=== PATIENT | male | born 1945 | race Hispanic/Latino ===

== ENCOUNTER 2017-06-12 11:39 | Emergency (ER) | payer BC, MEDICARE ==
[2017-06-12 11:57] LABS: BASOPHILS % (AUTO) 0.8 % (0.0-5.0); EOSINOPHILS % (AUTO) 2.2 % (0.0-8.0); HEMATOCRIT 41.9 % (42-54); LYMPHOCYTES % (AUTO) 15.7 % (21.0-51.0); MEAN CORPUSCULAR HEMOGLOBIN 30.7 pg (27.0-33.0); MEAN CORPUSCULAR HGB CONC 32.6 g/dL (32.0-36.0); MEAN CORPUSCULAR VOLUME 94.1 fL (79-99); MONOCYTES % (AUTO) 5.2 % (3.0-13.0); NEUTROPHILS % (AUTO) 76.1 % (40.0-77.0); PLATELET COUNT (AUTO) 249 K/uL (130-400); RED BLOOD CELL COUNT(AUTO) 4.45 MIL/uL (4.50-6.20); RED CELL DISTRIBUTION WIDTH 13.9 % (11.0-15.5); WHITE BLOOD COUNT (AUTO) 12.4 K/uL (4.8-10.8)
[2017-06-12 12:19] LABS: APPEARANCE,URINE Clear (CLEAR); BILIRUBIN,URINE Negative (NEGATIVE); COLOR,URINE Yellow (YELLOW); GLUCOSE, URINE (UA) 500 mg/dL (NEGATIVE); KETONES,URINE Trace mg/dL (NEGATIVE); LEUKOCYTE ESTERASE ,URINE Negative (NEGATIVE); NITRATE,URINE Negative (NEGATIVE); OCCULT BLOOD,URINE Small (NEGATIVE); PH,URINE 5.5 (5.0-8.0); PROTEIN,URINE >=1000 (NEGATIVE)
[2017-06-12 12:27] LABS: BACTERIA,URINE Rare /HPF (None Seen); SQUAMOUS EPITHELIAL CELL,UR Rare /LPF (0-2); WBC,URINE 0-1 /HPF (0-1)
[2017-06-12 12:48] LABS: POTASSIUM 4.9 mmol/L (3.5-5.1)
[2017-06-12 12:53] LABS: ALBUMIN 3.1 g/dL (3.5-5.0); BILIRUBIN,TOTAL 0.4 mg/dL (0.2-1.0); TOTAL PROTEIN, SERUM 7.4 g/dL (6.0-8.3)
[2017-06-12] MEDS ORDERED: ASPIRIN 325 MG TABLET ONE (17:43)
[2017-06-12] MEDS ORDERED: LABETALOL HCL 5 MG/ML 20ML VIAL IV ONE ×2 (18:06→18:49)
[2017-06-12] MEDS ORDERED: INSULIN HUMULIN R 100 UNIT/ML 3ML ONE (18:50)
== END 2017-06-12 21:10 | disposition short-term general hospital (02) ==
LOC: EDH 11:39
DX: I63.8 Other cerebral infarction (principal); I10 Essential (primary) hypertension; E11.9 Type 2 diabetes mellitus without complications; I48.91 Unspecified atrial fibrillation; E78.5 Hyperlipidemia, unspecified; Z87.891 Personal history of nicotine dependence
CPT/HCPCS: 36415; 70450; 73562; 80053; 81001; 82948; 84484; 85025; 93005; 96365; 96375; 99285; J1815; J3490 ×2

== ENCOUNTER → 2017-12-30 | Outpatient (CLI) | payer BC, MEDICARE | END | disposition home or self-care (01) | LOC: RAH 10:18 | PROVIDERS: ATTEND Family Medicine | DX: M71.22 Synovial cyst of popliteal space [Baker], left knee (principal); M71.21 Synovial cyst of popliteal space [Baker], right knee; R22.43 Localized swelling, mass and lump, lower limb, bilateral; E78.5 Hyperlipidemia, unspecified; I13.0 Hypertensive heart and chronic kidney disease with heart failure and stage 1 through stage 4 chronic kidney disease, or unspecified chronic kidney disease; I50.33 Acute on chronic diastolic (congestive) heart failure; E11.22 Type 2 diabetes mellitus with diabetic chronic kidney disease; N18.3 Chronic kidney disease, stage 3 (moderate); I48.0 Paroxysmal atrial fibrillation | CPT/HCPCS: 93970 ==

== ENCOUNTER 2020-03-14 12:47 | Observation (INO) | payer OTHER ==
[~2020-03-14] VITALS: Ht 165.1 cm; Wt 74.2 kg
[2020-03-14 13:52] LABS: BASOPHILS % (AUTO) 0.6 % (0.0-5.0); EOSINOPHILS % (AUTO) 1.2 % (0.0-8.0); LYMPHOCYTES % (AUTO) 12.8 % (21.0-51.0); MEAN CORPUSCULAR HEMOGLOBIN 26.3 pg (27.0-33.0); MEAN CORPUSCULAR HGB CONC 30.9 g/dL (32.0-36.0); MEAN CORPUSCULAR VOLUME 85.4 fL (79-99); NEUTROPHILS % (AUTO) 76.9 % (40.0-77.0); PLATELET COUNT (AUTO) 236 K/uL (130-400); RED BLOOD CELL COUNT(AUTO) 2.05 MIL/uL (4.50-6.20); RED CELL DISTRIBUTION WIDTH 15.2 % (11.0-15.5); WHITE BLOOD COUNT (AUTO) 8.4 K/uL (4.8-10.8)
[2020-03-14 14:05] LABS: ALBUMIN 3.4 g/dL (3.5-5.0); BILIRUBIN,TOTAL 0.4 mg/dL (0.2-1.0); CREATININE 2.8 mg/dL (0.5-1.5); POTASSIUM 4.9 mmol/L (3.5-5.1); TOTAL PROTEIN, SERUM 7.1 g/dL (6.0-8.3)
[2020-03-14 14:12] LABS: HEMATOCRIT 17.5 % (42-54)
[2020-03-14] MEDS ORDERED: PANTOPRAZOLE 40 MG/VIAL ONE (14:43)
[2020-03-14] MEDS ORDERED: HYDRALAZINE HCL 20 MG/ML VIAL IV PRN ×2 (14:45→17:30)
[2020-03-14] MEDS ORDERED: SODIUM CHLORIDE 0.9% 1000ML 1,000 ML IV ONE (15:08)
[2020-03-14] MEDS ORDERED: MECLIZINE HCL 25 MG TABLET ONE (15:10)
[2020-03-14 15:11] LABS: INR 1.15 (0.85-1.15); PROTHROMBIN TIME 12.4 SEC (9.6-11.6)
[2020-03-14 15:31] LABS: HEMATOCRIT 17.7 % (42-54)
[2020-03-14] MEDS ORDERED: ONDANSETRON HCL 4 MG/2 ML VIAL IVP PRN (17:30)
[2020-03-14] MEDS ORDERED: DEXTROSE 50%-WATER 50 ML DISP.SYRIN IV PRN (17:30)
[2020-03-14] MEDS ORDERED: ACETAMINOPHEN 325 MG TAB PO PRN (17:30)
[2020-03-14] MEDS ORDERED: GLUCAGON 1MG KIT 1 MG ML IM PRN (17:30)
[2020-03-14] MEDS ORDERED: RENAL DOSE IV PRN (17:30)
[2020-03-14] MEDS ORDERED: ACETAMINOPHEN 650 MG SUPPOSITORY RC PRN (17:30)
[2020-03-14] MEDS ORDERED: TEMAZEPAM 15 MG CAPSULE PO PRN (17:30)
[2020-03-14 20:05] LABS: HEMATOCRIT 16.5 % (42-54)
[2020-03-14 20:40] VITALS: BP 147/71
[2020-03-14] MEDS: INSULIN HUMULIN R 100 UNIT/ML 3ML SQ SCH (21:00)
[2020-03-14] MEDS: SODIUM CHLORIDE 0.9% 1000ML 1,000 ML IV SCH (23:25)
[2020-03-14] MEDS ORDERED: SODIUM CHLORIDE 0.9% 250 ML IV ONE (23:33)
[2020-03-14 23:54] VITALS: BP 129/62
[2020-03-15] VITALS (20 sets, daily range): BP systolic 118–172; BP diastolic 42–88
[2020-03-15] MEDS: PANTOPRAZOLE SODIUM 80 MG in SODIUM CHLORIDE 0.9% 100 ML IV SCH (00:14)
[2020-03-15] MEDS: SODIUM CHLORIDE 0.9% 1000ML 1,000 ML IV SCH ×3 (00:45→20:45)
[2020-03-15 02:48] LABS: HEMATOCRIT 21.6 % (42-54); MEAN CORPUSCULAR HEMOGLOBIN 27.8 pg (27.0-33.0); MEAN CORPUSCULAR HGB CONC 32.4 g/dL (32.0-36.0); MEAN CORPUSCULAR VOLUME 85.7 fL (79-99); RED BLOOD CELL COUNT(AUTO) 2.52 MIL/uL (4.50-6.20); RED CELL DISTRIBUTION WIDTH 14.6 % (11.0-15.5); WHITE BLOOD COUNT (AUTO) 7.6 K/uL (4.8-10.8)
[2020-03-15 03:00] LABS: CREATININE 2.6 mg/dL (0.5-1.5); POTASSIUM 4.5 mmol/L (3.5-5.1)
--- NOTE | 2020-03-15 06:21 | NUR ---
PATIENT UPDATE ADMITTED A 74 YR OLD MALE FROM ER WITH THE CHIEF COMPLAINT OF FEELING SOME DIZZINESS WITH NAUSEA AND GEN BODY WEAKNESS SINCE 4 DAYS AGO WHICH PROMPTED THE DAUGHTER TO BRING PT HERE FOR CONSULTATION. VERY ANEMIC WITH AN H/H OF 5.4/ 17.5 AND WITH ONGOING BLOOD TRANSFUSION FOR THE 1ST UNIT OF PRBC, PENDING 1 MORE UNIT TO TRANSFUSE. WITH ONGOING PROTONIX DRIP INFUSING AT 8 MG /HR.PT PLACED ON 2L OF NASAL CANNULA, HEAD OF THE BED UP , ALERT AND ORIENTED X 3, AWARE OF THE PLAN FOR EGD WITH MAC THIS AM. PT STATED THAT HE'S BEEN PASSING TARRY STOOLS. NO NAUSEA AT THIS TIME. KEPT NPO POST MN, PRESENTLY RUNNING THE 3RD UNIT OF PRBC. H/H POST TRANSFUSION OF 2 UNITS OF PRBC AFTER 0300 WAS 7.0/21.6. WENT AHEAD AND STARTED THE TRANSFUSION OF THE 3RD UNIT OF PRBC. PT TOLERATING THE BLOOD TRANSFUSION WELL, VITAL SIGNS STABLE. ORDERED NS AT 100 CC/HR HELD WHILE PT IS RECEIVING ACTIVE BLOOD TRANSFUSION. NO SIGNS OF EXTERNAL BLEEDING NOTED. RUNNING AFIB IN THE MONITOR AT A CONTROLLED RATE MOSTLY BET 50'S TO 60'S. NO CHEST PAIN, NO SHORTNESS OF BREATH. SOME SWELLING IN THE MER LOWER EXTREMITIES, DEPENDENT EDEMA, NON PITTING, KNOWN CHF. VOIDING TO ADEQUATE AMOUNTS OF URINE THROUGHOUT THE WHOLE NIGHT. NO COMPLAINTS VOICED OUT, SLEPT FAIRLY MOST OF THE NIGHT, MER SCD'S TO BOTH LEGS FOR VTE PROTOCOL.
[2020-03-15] MEDS: INSULIN HUMULIN R 100 UNIT/ML 3ML SQ SCH ×4 (07:13→21:00)
[2020-03-15 09:00] LABS: HEMATOCRIT 25.2 % (42-54)
[2020-03-15] MEDS ORDERED: COMPOUND IV MISC 1 EACH IVSOLN MISC PRN (12:45)
--- NOTE | 2020-03-15 16:39 | NUR ---
INITIAL: Met with pt this afternoon to discuss dcp. Pt mentions that he lives w his dtr [place]. Prior to admission he was independent w ambulation and ADLS. He has a cane if needed. Pt mentions that his dtr will be avail to assist him at home if needed. DCP is for home CM to continue to follow and wait for MD recommendations. Addendum: 03/15/20 at 1641 by TYRESE ONEAL CM Amended: Links added.
[2020-03-15] MEDS ORDERED: PANTOPRAZOLE 40 MG/VIAL ONE (23:58)
[2020-03-15] MEDS ORDERED: SODIUM CHLORIDE 0.9% 100 ML IV ONE (23:59)
[2020-03-16] VITALS: BP 153/91
[2020-03-16 04:00] VITALS: BP 174/82
[2020-03-16 04:55] VITALS: BP 161/85
[2020-03-16] MEDS ORDERED: CLONIDINE HCL 0.1 MG TABLET PO PRN (05:00)
[2020-03-16] MEDS: SODIUM CHLORIDE 0.9% 1000ML 1,000 ML IV SCH ×2 (05:17→09:53)
[2020-03-16] MEDS: INSULIN HUMULIN R 100 UNIT/ML 3ML SQ SCH ×2 (05:58→11:30)
[2020-03-16 06:15] LABS: HEMATOCRIT 24.3 % (42-54); MEAN CORPUSCULAR HEMOGLOBIN 27.4 pg (27.0-33.0); MEAN CORPUSCULAR HGB CONC 31.7 g/dL (32.0-36.0); MEAN CORPUSCULAR VOLUME 86.5 fL (79-99); RED BLOOD CELL COUNT(AUTO) 2.81 MIL/uL (4.50-6.20); RED CELL DISTRIBUTION WIDTH 14.8 % (11.0-15.5); WHITE BLOOD COUNT (AUTO) 7.1 K/uL (4.8-10.8)
[2020-03-16 06:23] LABS: CREATININE 2.2 mg/dL (0.5-1.5); POTASSIUM 4.1 mmol/L (3.5-5.1)
[2020-03-16 08:00] VITALS: BP 118/63
[2020-03-16 09:00] VITALS: BP 171/94
[2020-03-16] MEDS: PANTOPRAZOLE SODIUM 80 MG in SODIUM CHLORIDE 0.9% 100 ML IV SCH (09:00)
[2020-03-16] MEDS ORDERED: METO-391 PO (09:31)
[2020-03-16] MEDS ORDERED: FURO40TA5 PO (09:31)
[2020-03-16] MEDS ORDERED: HYDR-3420 PO (09:31)
[2020-03-16] MEDS ORDERED: COLC0.6C3 PO (09:31)
[2020-03-16] MEDS ORDERED: NIFE-39 PO (09:31)
[2020-03-16] MEDS ORDERED: APIX5TAB PO (09:31)
[2020-03-16] MEDS ORDERED: DOXA2TAB2 PO (09:31)
[2020-03-16] MEDS ORDERED: ATOR40TA69 PO (09:31)
[2020-03-16] MEDS ORDERED: FAMO20TA8 PO (09:31)
[2020-03-16] MEDS ORDERED: CARAL PO (11:27)
[2020-03-16] MEDS ORDERED: PANT40TA PO (11:27)
--- NOTE | 2020-03-16 15:15 | NUR ---
DISCHARGE DISCHARGE INSTRUCTIONS GIVEN TO PATIENT AND HIS DAUGHTER, BOTH VERBALIZED UNDERSTANDING. PRESCRIPTIONS SENT TO HEB. IV'S DISCONTINUED.
[2020-03-16] MEDS ORDERED: PANTOPRAZOLE SODIUM 40 MG TABLET.DR PO SCH (21:00)
== END 2020-03-16 13:10 | disposition home or self-care (01) ==
LOC: EDH 12:47 → EDHIP 14:37 → 4CH 19:53
PROVIDERS: ADMIT Internal Medicine; ATTEND Internal Medicine
DX: D64.9 Anemia, unspecified (principal); K92.1 Melena; K29.70 Gastritis, unspecified, without bleeding; M10.9 Gout, unspecified; I12.9 Hypertensive chronic kidney disease with stage 1 through stage 4 chronic kidney disease, or unspecified chronic kidney disease; E11.22 Type 2 diabetes mellitus with diabetic chronic kidney disease; N18.9 Chronic kidney disease, unspecified; E78.5 Hyperlipidemia, unspecified; N17.9 Acute kidney failure, unspecified; I48.91 Unspecified atrial fibrillation; Z79.01 Long term (current) use of anticoagulants; Z79.899 Other long term (current) drug therapy
CPT/HCPCS: 36415 ×3; 36430 ×2; 43235; 70450; 71045 ×2; 80048 ×2; 80053; 82270; 82948 ×6; 84484 ×2; 85014 ×4; 85018 ×4; 85025; 85027 ×2; 85378; 85610; 86850; 86900; 86901; 86923 ×2; 93005; 96360; 96361 ×2; 99285; A4222; A4223; A4606; A4620; A4657; C9113 ×4; G0378 ×11; J7030 ×2; J7050; P9016 ×3

== ENCOUNTER 2020-03-31 11:33 | Emergency (ER) | payer OTHER ==
[~2020-03-31 11:33] MED LIST: APIX5TAB PO; ATOR40TA69 PO; CARAL PO; DOXA2TAB2 PO; FURO40TA5 PO; HYDR-3420 PO; METO-391 PO; NIFE-39 PO; PANT40TA PO
[2020-03-31 12:06] LABS: BASOPHILS % (AUTO) 0.4 % (0.0-5.0); HEMATOCRIT 23.2 % (42-54); LYMPHOCYTES % (AUTO) 9.6 % (21.0-51.0); MEAN CORPUSCULAR HEMOGLOBIN 26.9 pg (27.0-33.0); MEAN CORPUSCULAR HGB CONC 31.9 g/dL (32.0-36.0); MEAN CORPUSCULAR VOLUME 84.4 fL (79-99); MONOCYTES % (AUTO) 3.9 % (3.0-13.0); NEUTROPHILS % (AUTO) 84.8 % (40.0-77.0); PLATELET COUNT (AUTO) 324 K/uL (130-400); RED BLOOD CELL COUNT(AUTO) 2.75 MIL/uL (4.50-6.20); RED CELL DISTRIBUTION WIDTH 15.8 % (11.0-15.5); WHITE BLOOD COUNT (AUTO) 11.4 K/uL (4.8-10.8)
[2020-03-31 12:29] LABS: ALBUMIN 3.4 g/dL (3.5-5.0); BILIRUBIN,TOTAL 0.5 mg/dL (0.2-1.0); CREATININE 3.1 mg/dL (0.5-1.5); POTASSIUM 4.3 mmol/L (3.5-5.1); TOTAL PROTEIN, SERUM 7.6 g/dL (6.0-8.3)
[2020-03-31 12:41] LABS: INR 1.18 (0.85-1.15); PARTIAL THROMBOPLASTIN TIME 31.5 SEC (26.3-35.5); PROTHROMBIN TIME 12.7 SEC (9.6-11.6)
[2020-03-31 14:13] LABS: APPEARANCE,URINE Clear (CLEAR); BILIRUBIN,URINE Negative (NEGATIVE); COLOR,URINE Yellow (YELLOW); GLUCOSE, URINE (UA) Negative (NEGATIVE); KETONES,URINE Negative (NEGATIVE); LEUKOCYTE ESTERASE ,URINE Negative (NEGATIVE); NITRATE,URINE Negative (NEGATIVE); OCCULT BLOOD,URINE Negative (NEGATIVE); PROTEIN,URINE POS 2+ mg/dL (NEGATIVE); UROBILINOGEN,URINE 0.2 mg/dL (0.2-1.0)
[2020-03-31 14:25] LABS: BACTERIA,URINE Rare /HPF (None Seen); RBC,URINE 0-1 /HPF (0-1); SQUAMOUS EPITHELIAL CELL,UR Rare /HPF (0-2); WBC,URINE 0-1 /HPF (0-1)
== END 2020-03-31 15:39 | disposition home or self-care (01) ==
LOC: EDH 11:33
DX: K62.5 Hemorrhage of anus and rectum (principal); E11.9 Type 2 diabetes mellitus without complications; I10 Essential (primary) hypertension; E78.5 Hyperlipidemia, unspecified; I50.9 Heart failure, unspecified; M10.9 Gout, unspecified; I48.91 Unspecified atrial fibrillation
CPT/HCPCS: 36415; 80053; 81001; 85025; 85610; 85730; 86850; 86900; 86901; 87040; 93005

== ENCOUNTER 2020-04-01 16:08 | Inpatient (IN) | payer OTHER ==
[~2020-04-01] VITALS: Ht 165.1 cm; Wt 88.9 kg
[2020-04-01 16:37] LABS: BASOPHILS % (AUTO) 0.6 % (0.0-5.0); MEAN CORPUSCULAR HEMOGLOBIN 26.7 pg (27.0-33.0); MEAN CORPUSCULAR HGB CONC 31.5 g/dL (32.0-36.0); MEAN CORPUSCULAR VOLUME 84.6 fL (79-99); MONOCYTES % (AUTO) 5.8 % (3.0-13.0); NEUTROPHILS % (AUTO) 77.1 % (40.0-77.0); PLATELET COUNT (AUTO) 283 K/uL (130-400); RED CELL DISTRIBUTION WIDTH 15.9 % (11.0-15.5); WHITE BLOOD COUNT (AUTO) 8.6 K/uL (4.8-10.8)
[2020-04-01 16:45] LABS: HEMATOCRIT 20.3 % (42-54)
[2020-04-01 16:54] LABS: CREATININE 3.1 mg/dL (0.5-1.5); POTASSIUM 4.2 mmol/L (3.5-5.1)
[2020-04-01 16:58] LABS: INR 1.14 (0.85-1.15); PARTIAL THROMBOPLASTIN TIME 30.6 SEC (26.3-35.5); PROTHROMBIN TIME 12.3 SEC (9.6-11.6)
[2020-04-01 16:59] LABS: BILIRUBIN,TOTAL 0.3 mg/dL (0.2-1.0); TOTAL PROTEIN, SERUM 7.1 g/dL (6.0-8.3)
[2020-04-01] MEDS ORDERED: MAG HYDROX/AL HYDROX/SIMETH ES 30 ML SUSP UDCUP PO PRN (18:00)
[2020-04-01] MEDS ORDERED: DiphenhydrAMINE HCL 50 MG/ML VIAL IV PRN (18:00)
[2020-04-01] MEDS ORDERED: MORPHINE SULFATE 2 MG/ML 1ML SYG IV PRN (18:00)
[2020-04-01] MEDS ORDERED: ONDANSETRON HCL 4 MG/2 ML VIAL IV PRN (18:00)
[2020-04-01] MEDS ORDERED: SODIUM CHLORIDE 0.9% 1000ML 1,000 ML IV SCH (18:00)
[2020-04-01] MEDS ORDERED: PANTOPRAZOLE 40 MG/VIAL ONE (18:20)
[2020-04-01] MEDS ORDERED: SODIUM CHLORIDE 0.9% 100 ML IV ONE (18:21)
[2020-04-01] MEDS ORDERED: SODIUM CHLORIDE 0.9% 250 ML IV ONE (20:37)
[2020-04-02] VITALS (7 sets, daily range): BP systolic 125–155; BP diastolic 60–77
[2020-04-02 00:44] LABS: HEMATOCRIT 22.7 % (42-54)
[2020-04-02] MEDS ORDERED: HYDRALAZINE HCL 20 MG/ML VIAL IV PRN (00:45)
[2020-04-02 06:14] LABS: HEMATOCRIT 22.6 % (42-54); MEAN CORPUSCULAR HEMOGLOBIN 26.3 pg (27.0-33.0); MEAN CORPUSCULAR HGB CONC 31.9 g/dL (32.0-36.0); MEAN CORPUSCULAR VOLUME 82.5 fL (79-99); RED BLOOD CELL COUNT(AUTO) 2.74 MIL/uL (4.50-6.20); RED CELL DISTRIBUTION WIDTH 15.5 % (11.0-15.5); WHITE BLOOD COUNT (AUTO) 7.9 K/uL (4.8-10.8)
[2020-04-02 06:24] LABS: CREATININE 2.8 mg/dL (0.5-1.5); POTASSIUM 4.2 mmol/L (3.5-5.1)
[2020-04-02] MEDS ORDERED: SODIUM CHLORIDE 0.9% 250 ML IV ONE (06:47)
[2020-04-02] MEDS ORDERED: PANTOPRAZOLE SODIUM 80 MG in SODIUM CHLORIDE 0.9% 100 ML IV SCH ×2 (09:00→18:15)
[2020-04-02] MEDS: NIFEDIPINE ER 30 MG TAB PO SCH (09:08)
[2020-04-02] MEDS: FUROSEMIDE 40 MG TABLET PO SCH (09:09)
[2020-04-02] MEDS: ATORVASTATIN CALCIUM 40 MG TABLET PO SCH (09:09)
[2020-04-02] MEDS: METOPROLOL SUCCINATE 50 MG TAB.SR.24H PO SCH (09:09)
[2020-04-02] MEDS: HYDRALAZINE HCL 10 MG TABLET PO SCH ×4 (09:09→19:06)
--- NOTE | 2020-04-02 11:14 | NUR ---
DCP CM met with pt and daughter discussed dc plans. Pt is independent prior to admission, lives at home with daughter. Pt has a cane. Denies any other equipments/services. Feels safe to go back home, daughter able to assist with transportation and needs as necessary. DC plan to home once stable. CM to continue to follow up. Addendum: 04/02/20 at 1115 by SANDRA DUMONT LVN CM Amended: Links added.
--- NOTE | 2020-04-02 14:33 | NUR ---
MD CALL CALL RECEIVED FROM DR. MARIE REGARDING CONSULT. LAB RESULTS READ. NEW ORDERS RECEIVED TO KEEP PATIENT ON CLEAR LIQUID DIET AND WILL LOOK AND LAST COLONOSCOPY PROCEDURE DONE BY DR. ARITA AND WILL CALL BACK WITH FURTHER ORDERS.
[2020-04-02] MEDS ORDERED: HYDR-3420 PO (18:02)
[2020-04-02] MEDS ORDERED: COMPOUND IV REFRIGERATED 1 EACH IVSOLN MISC PRN (18:45)
[2020-04-02] MEDS ORDERED: DOXAZOSIN MESYLATE 2 MG TABLET PO SCH (21:00)
--- NOTE | 2020-04-02 21:55 | NUR ---
2153: I paged via pager, returned call within a few minutes. Informed of GI bleeding scan results, no bleeding noted. Questioned last H/H results informed him .06/30.7. Orders received for cl liquid diet, and CBC for the morning. Patient made aware of new orders verbalized understanding.
[2020-04-03] VITALS (7 sets, daily range): BP systolic 128–148; BP diastolic 62–70
[2020-04-03 05:00] LABS: BASOPHILS % (AUTO) 0.4 % (0.0-5.0); EOSINOPHILS % (AUTO) 1.6 % (0.0-8.0); HEMATOCRIT 22.7 % (42-54); LYMPHOCYTES % (AUTO) 11.6 % (21.0-51.0); MEAN CORPUSCULAR HEMOGLOBIN 26.5 pg (27.0-33.0); MEAN CORPUSCULAR HGB CONC 32.2 g/dL (32.0-36.0); MEAN CORPUSCULAR VOLUME 82.5 fL (79-99); MONOCYTES % (AUTO) 5.9 % (3.0-13.0); NEUTROPHILS % (AUTO) 79.9 % (40.0-77.0); PLATELET COUNT (AUTO) 310 K/uL (130-400); RED BLOOD CELL COUNT(AUTO) 2.75 MIL/uL (4.50-6.20); RED CELL DISTRIBUTION WIDTH 15.4 % (11.0-15.5); WHITE BLOOD COUNT (AUTO) 8.4 K/uL (4.8-10.8)
[2020-04-03 05:12] LABS: CREATININE 2.6 mg/dL (0.5-1.5); POTASSIUM 3.9 mmol/L (3.5-5.1)
[2020-04-03] MEDS: ATORVASTATIN CALCIUM 40 MG TABLET PO SCH (09:48)
[2020-04-03] MEDS: METOPROLOL SUCCINATE 50 MG TAB.SR.24H PO SCH (09:48)
[2020-04-03] MEDS: NIFEDIPINE ER 30 MG TAB PO SCH (09:48)
[2020-04-03] MEDS: HYDRALAZINE HCL 10 MG TABLET PO SCH ×4 (09:49→19:44)
[2020-04-03] MEDS: FUROSEMIDE 40 MG TABLET PO SCH (09:49)
[2020-04-03] MEDS: ACETAMINOPHEN 325 MG TAB PO PRN (11:05)
[2020-04-03] MEDS: SODIUM CHLORIDE 0.9% 1000ML 1,000 ML IV SCH (16:07)
[2020-04-03] MEDS: HYDROMORPHONE HCL 0.5 MG/0.5 ML ML IVP PRN (18:24)
[2020-04-03] MEDS: PANTOPRAZOLE SODIUM 40 MG TABLET.DR PO SCH (19:44)
[2020-04-04 04:00] VITALS: BP 142/66
[2020-04-04 06:01] LABS: BASOPHILS % (AUTO) 0.2 % (0.0-5.0); EOSINOPHILS % (AUTO) 0.7 % (0.0-8.0); HEMATOCRIT 23.3 % (42-54); LYMPHOCYTES % (AUTO) 8.3 % (21.0-51.0); MEAN CORPUSCULAR HEMOGLOBIN 26.2 pg (27.0-33.0); MEAN CORPUSCULAR HGB CONC 31.3 g/dL (32.0-36.0); MEAN CORPUSCULAR VOLUME 83.5 fL (79-99); MONOCYTES % (AUTO) 7.7 % (3.0-13.0); NEUTROPHILS % (AUTO) 82.8 % (40.0-77.0); PLATELET COUNT (AUTO) 293 K/uL (130-400); RED BLOOD CELL COUNT(AUTO) 2.79 MIL/uL (4.50-6.20); RED CELL DISTRIBUTION WIDTH 15.4 % (11.0-15.5); WHITE BLOOD COUNT (AUTO) 9.6 K/uL (4.8-10.8)
[2020-04-04 06:31] LABS: ALBUMIN 2.9 g/dL (3.5-5.0); BILIRUBIN,TOTAL 0.7 mg/dL (0.2-1.0); CREATININE 2.7 mg/dL (0.5-1.5); POTASSIUM 3.7 mmol/L (3.5-5.1); TOTAL PROTEIN, SERUM 6.7 g/dL (6.0-8.3)
[2020-04-04 08:00] VITALS: BP 157/62
--- NOTE | 2020-04-04 08:00 | NUR ---
ASSESSMENT NOTE PT IS IN BED AA0X3 WITH DAUGHTER AT BEDSIDE. PT C/O IS PAIN TO ALL JOINTS D/T GOUT. PT IS ASKING FOR MEDS FOR HIS GOUT
[2020-04-04] MEDS: FUROSEMIDE 40 MG TABLET PO SCH (09:09)
[2020-04-04] MEDS: PANTOPRAZOLE SODIUM 40 MG TABLET.DR PO SCH ×2 (09:09→19:51)
[2020-04-04] MEDS: NIFEDIPINE ER 30 MG TAB PO SCH (09:09)
[2020-04-04] MEDS: ATORVASTATIN CALCIUM 40 MG TABLET PO SCH (09:09)
[2020-04-04] MEDS: HYDRALAZINE HCL 10 MG TABLET PO SCH ×2 (09:09→19:51)
[2020-04-04] MEDS: METOPROLOL SUCCINATE 50 MG TAB.SR.24H PO SCH (09:09)
--- NOTE | 2020-04-04 09:53 | NUR ---
DR. FE MIRAMONTES FROM [facility] PAGED FOR AFIB/ELIQUIS PT IS A GI BLEED. DR BECERRA IS PRIMARY CANCELLATION CLERK
--- NOTE | 2020-04-04 09:55 | NUR ---
DR. CYNTHIA METZGER FOR POSSIBLE ENDOSCOPY /GI BLEED
--- NOTE | 2020-04-04 10:00 | NUR ---
DR. CYNTHIA MARIE GI CALL BACK NO ENDOSCOPY OR COLONOSCOPY AT THIS TIME. PER DR. MARIE PT HAS CHRONIC ANEMIA AND WOULD LIKE TO SEE HIM 1 WEEK AFTER HE IS D/C FROM HOSPITAL TO SCHEDULE A PILL TEST FOR GI BLEEDING.
[2020-04-04] MEDS: SODIUM CHLORIDE 0.9% 1000ML 1,000 ML IV SCH (11:46)
[2020-04-04] MEDS: HYDROMORPHONE HCL 0.5 MG/0.5 ML ML IVP PRN (12:17)
[2020-04-04 12:36] VITALS: BP 152/71
--- NOTE | 2020-04-04 13:00 | NUR ---
[facility] PER ROGELIO BOYER OK TO STOP ELIQUIS AND DR MARIE CAN RESUME ELIQUES AFTER VISIT OUTPATIENT.
[2020-04-04] MEDS: PREDNISONE 20 MG TABLET PO SCH (14:39)
[2020-04-04 17:22] VITALS: BP 137/61
[2020-04-04 19:55] VITALS: BP 128/62
[2020-04-04] MEDS: INSULIN HUMULIN R 100 UNIT/ML 3ML SQ SCH (20:55)
[2020-04-05] VITALS (8 sets, daily range): BP systolic 114–137; BP diastolic 56–87
--- NOTE | 2020-04-05 03:52 | NUR ---
ROUNDS PATIENT RESTING IN BED WITH OU CLOSED. EASILY AROUSED. NO COMPLAINTS OF PAIN VOICED. VITALS STABLE. AFEBRILE. RESP EVEN AND UNLABORED. NO SOB NOTED. ON ROOM AIR. VOIDING WITHOUT DIFFICULTY. NO ACTIVE BLEEDING NOTED. NO SIGNS OF DISTRESS. CALL LIGHT WITHIN REACH. WILL CONTINUE TO BE OBSERVED. Addendum: 04/05/20 at 0357 by MARLI TORRES RN RN Amended: Links added.
[2020-04-05 05:48] LABS: BASOPHILS % (AUTO) 0.1 % (0.0-5.0); HEMATOCRIT 22.3 % (42-54); LYMPHOCYTES % (AUTO) 6.7 % (21.0-51.0); MEAN CORPUSCULAR HEMOGLOBIN 26.4 pg (27.0-33.0); MEAN CORPUSCULAR HGB CONC 31.8 g/dL (32.0-36.0); MEAN CORPUSCULAR VOLUME 82.9 fL (79-99); MONOCYTES % (AUTO) 5.1 % (3.0-13.0); NEUTROPHILS % (AUTO) 87.5 % (40.0-77.0); PLATELET COUNT (AUTO) 281 K/uL (130-400); RED BLOOD CELL COUNT(AUTO) 2.69 MIL/uL (4.50-6.20); RED CELL DISTRIBUTION WIDTH 15.1 % (11.0-15.5); WHITE BLOOD COUNT (AUTO) 9.9 K/uL (4.8-10.8)
[2020-04-05] MEDS: INSULIN HUMULIN R 100 UNIT/ML 3ML SQ SCH ×4 (05:48→20:50)
[2020-04-05 06:22] LABS: CREATININE 3.1 mg/dL (0.5-1.5); POTASSIUM 3.9 mmol/L (3.5-5.1)
[2020-04-05] MEDS: SODIUM CHLORIDE 0.9% 1000ML 1,000 ML IV SCH ×2 (06:29→20:50)
[2020-04-05] MEDS: PANTOPRAZOLE SODIUM 40 MG TABLET.DR PO SCH ×2 (09:41→20:39)
[2020-04-05] MEDS: METOPROLOL SUCCINATE 50 MG TAB.SR.24H PO SCH (09:41)
[2020-04-05] MEDS: PREDNISONE 20 MG TABLET PO SCH (09:41)
[2020-04-05] MEDS: NIFEDIPINE ER 30 MG TAB PO SCH (09:41)
[2020-04-05] MEDS: HYDRALAZINE HCL 10 MG TABLET PO SCH ×2 (09:41→20:40)
[2020-04-05] MEDS: FUROSEMIDE 40 MG TABLET PO SCH (09:41)
[2020-04-05] MEDS: ATORVASTATIN CALCIUM 40 MG TABLET PO SCH (09:43)
[2020-04-06 01:08] LABS: HEMATOCRIT 23.1 % (42-54); MEAN CORPUSCULAR HEMOGLOBIN 27.2 pg (27.0-33.0); MEAN CORPUSCULAR HGB CONC 32.9 g/dL (32.0-36.0); MEAN CORPUSCULAR VOLUME 82.8 fL (79-99); RED BLOOD CELL COUNT(AUTO) 2.79 MIL/uL (4.50-6.20); RED CELL DISTRIBUTION WIDTH 15.1 % (11.0-15.5); WHITE BLOOD COUNT (AUTO) 10.3 K/uL (4.8-10.8)
[2020-04-06 04:35] VITALS: BP 125/84
[2020-04-06 05:35] LABS: EOSINOPHILS % (AUTO) 0.1 % (0.0-8.0); HEMATOCRIT 22.7 % (42-54); LYMPHOCYTES % (AUTO) 8.5 % (21.0-51.0); MEAN CORPUSCULAR HEMOGLOBIN 26.5 pg (27.0-33.0); MEAN CORPUSCULAR HGB CONC 32.2 g/dL (32.0-36.0); MEAN CORPUSCULAR VOLUME 82.5 fL (79-99); MONOCYTES % (AUTO) 7.9 % (3.0-13.0); NEUTROPHILS % (AUTO) 83.1 % (40.0-77.0); PLATELET COUNT (AUTO) 259 K/uL (130-400); RED BLOOD CELL COUNT(AUTO) 2.75 MIL/uL (4.50-6.20); RED CELL DISTRIBUTION WIDTH 15.2 % (11.0-15.5)
[2020-04-06 05:53] LABS: ALBUMIN 2.5 g/dL (3.5-5.0); CREATININE 3.5 mg/dL (0.5-1.5); PHOSPHORUS 3.9 mg/dL (2.5-4.9); POTASSIUM 4.1 mmol/L (3.5-5.1); TOTAL PROTEIN, SERUM 6.5 g/dL (6.0-8.3)
[2020-04-06] MEDS: INSULIN HUMULIN R 100 UNIT/ML 3ML SQ SCH ×4 (05:58→21:17)
[2020-04-06] MEDS: SODIUM CHLORIDE 0.9% 1000ML 1,000 ML IV SCH ×2 (07:46→17:45)
[2020-04-06 08:00] VITALS: BP 134/65
[2020-04-06] MEDS: NIFEDIPINE ER 30 MG TAB PO SCH (09:21)
[2020-04-06] MEDS: PANTOPRAZOLE SODIUM 40 MG TABLET.DR PO SCH ×2 (09:21→21:10)
[2020-04-06] MEDS: ATORVASTATIN CALCIUM 40 MG TABLET PO SCH (09:22)
[2020-04-06] MEDS: PREDNISONE 20 MG TABLET PO SCH (09:22)
[2020-04-06] MEDS: METOPROLOL SUCCINATE 50 MG TAB.SR.24H PO SCH (09:22)
[2020-04-06] MEDS: HYDRALAZINE HCL 10 MG TABLET PO SCH ×2 (09:22→21:10)
[2020-04-06] MEDS: FUROSEMIDE 40 MG TABLET PO SCH (09:22)
[2020-04-06] MEDS ORDERED: SODIUM CHLORIDE 0.9% 250 ML IV ONE (10:06)
[2020-04-06 11:13] VITALS: BP 132/70
[2020-04-06] MEDS ORDERED: SODIUM CHLORIDE 0.9% IJ SCH (14:30)
[2020-04-06] MEDS ORDERED: DESMOPRESSIN ACETATE IJ SCH (14:30)
[2020-04-06 16:02] LABS: HEMATOCRIT 28.9 % (42-54)
[2020-04-06 16:28] VITALS: BP 139/76
[2020-04-06 20:49] VITALS: BP 140/79
[2020-04-06 23:48] VITALS: BP 137/68
[2020-04-07] MEDS: SODIUM CHLORIDE 0.9% 1000ML 1,000 ML IV SCH ×2 (02:06→22:46)
[2020-04-07 04:56] VITALS: BP 144/86
[2020-04-07 05:36] LABS: EOSINOPHILS % (AUTO) 0.1 % (0.0-8.0); HEMATOCRIT 25.5 % (42-54); LYMPHOCYTES % (AUTO) 9.3 % (21.0-51.0); MEAN CORPUSCULAR HEMOGLOBIN 27.5 pg (27.0-33.0); MEAN CORPUSCULAR HGB CONC 32.9 g/dL (32.0-36.0); MEAN CORPUSCULAR VOLUME 83.6 fL (79-99); MONOCYTES % (AUTO) 7.1 % (3.0-13.0); NEUTROPHILS % (AUTO) 83.1 % (40.0-77.0); PLATELET COUNT (AUTO) 258 K/uL (130-400); RED BLOOD CELL COUNT(AUTO) 3.05 MIL/uL (4.50-6.20); RED CELL DISTRIBUTION WIDTH 15.1 % (11.0-15.5)
[2020-04-07 05:50] LABS: ALBUMIN 2.6 g/dL (3.5-5.0); BILIRUBIN,TOTAL 2.3 mg/dL (0.2-1.0); CREATININE 3.8 mg/dL (0.5-1.5); MAGNESIUM 2.2 mg/dL (1.80-2.40); PHOSPHORUS 4.3 mg/dL (2.5-4.9); POTASSIUM 4.2 mmol/L (3.5-5.1); TOTAL PROTEIN, SERUM 6.6 g/dL (6.0-8.3)
[2020-04-07] MEDS: INSULIN HUMULIN R 100 UNIT/ML 3ML SQ SCH ×4 (06:05→22:49)
[2020-04-07 08:00] VITALS: BP 141/77
[2020-04-07] MEDS: FUROSEMIDE 40 MG TABLET PO SCH (09:38)
[2020-04-07] MEDS: NIFEDIPINE ER 30 MG TAB PO SCH (09:38)
[2020-04-07] MEDS: METOPROLOL SUCCINATE 50 MG TAB.SR.24H PO SCH (09:38)
[2020-04-07] MEDS: ATORVASTATIN CALCIUM 40 MG TABLET PO SCH (09:38)
[2020-04-07] MEDS: PANTOPRAZOLE SODIUM 40 MG TABLET.DR PO SCH ×2 (09:38→22:36)
[2020-04-07] MEDS: PREDNISONE 20 MG TABLET PO SCH (09:39)
[2020-04-07] MEDS: HYDRALAZINE HCL 10 MG TABLET PO SCH ×2 (09:39→22:36)
[2020-04-07 11:00] VITALS: BP 135/73
[2020-04-07] MEDS ORDERED: PEG 3350/NA SULF,BICARB,CL/KCL 4000 ML SOLN PO SCH (14:00)
[2020-04-07 16:00] VITALS: BP 126/73
--- NOTE | 2020-04-07 19:31 | NUR ---
NOTE RECEIVED CALL FROM WOMAN IDENTIFIYING HERSELF CALLING FROM DR. MILLER OFFICE TO VERIFY THAT PATIENT IS GOING TO HAVE A PUSH ENTEROSCOPY TOMORROW NOT EGD/COLONOSCOPY. 2009 CONTACTED VISOR INSTALLER BERT WILLIAMSON RN AFTER REVIEWING CHART AND NOTING ORDER FOR PUSH ENTEROSCOPY WAS ENTERED IN COMPUTER BY DR. MILLER. FAXED HER ORDER SHE SAID THE SCHEDULE SHOWED EGD/COLONOSCOPY.
[2020-04-07 19:40] VITALS: BP 140/78
[2020-04-07 23:59] VITALS: BP 142/89
[2020-04-08] VITALS (19 sets, daily range): BP systolic 109–169; BP diastolic 46–91
[2020-04-08 03:35] LABS: HEMATOCRIT 29.4 % (42-54); MEAN CORPUSCULAR HEMOGLOBIN 26.9 pg (27.0-33.0); MEAN CORPUSCULAR VOLUME 84.2 fL (79-99); NEUTROPHILS % (AUTO) 84.7 % (40.0-77.0); PLATELET COUNT (AUTO) 315 K/uL (130-400); RED BLOOD CELL COUNT(AUTO) 3.49 MIL/uL (4.50-6.20); RED CELL DISTRIBUTION WIDTH 15.4 % (11.0-15.5); WHITE BLOOD COUNT (AUTO) 9.4 K/uL (4.8-10.8)
[2020-04-08 03:50] LABS: BILIRUBIN,TOTAL 0.6 mg/dL (0.2-1.0); CREATININE 3.2 mg/dL (0.5-1.5); MAGNESIUM 2.8 mg/dL (1.80-2.40); PHOSPHORUS 3.6 mg/dL (2.5-4.9); POTASSIUM 4.2 mmol/L (3.5-5.1); TOTAL PROTEIN, SERUM 7.5 g/dL (6.0-8.3)
[2020-04-08] MEDS: INSULIN HUMULIN R 100 UNIT/ML 3ML SQ SCH ×4 (06:42→21:00)
[2020-04-08] MEDS ORDERED: PROPOFOL 10 MG/ML 20ML VIAL IV ONE (07:07)
[2020-04-08] MEDS ORDERED: MIDAZOLAM HCL 1 MG/ML 2ML VIAL ONE (07:07)
[2020-04-08] MEDS ORDERED: LIDOCAINE HCL 1% 20 ML VIAL ONE (07:07)
[2020-04-08] MEDS ORDERED: PHENYLEPHRINE HCL 10 MG/ML 1ML VIAL IV ONE (07:09)
[2020-04-08] MEDS: ATORVASTATIN CALCIUM 40 MG TABLET PO SCH (09:00)
[2020-04-08] MEDS: PANTOPRAZOLE SODIUM 40 MG TABLET.DR PO SCH (09:00)
[2020-04-08] MEDS: HYDRALAZINE HCL 10 MG TABLET PO SCH ×2 (09:00→21:00)
[2020-04-08] MEDS: NIFEDIPINE ER 30 MG TAB PO SCH (09:00)
[2020-04-08] MEDS: FUROSEMIDE 40 MG TABLET PO SCH (09:00)
[2020-04-08] MEDS: PREDNISONE 20 MG TABLET PO SCH (09:00)
[2020-04-08] MEDS ORDERED: FUROSEMIDE 10 MG/ML 4ML VIAL ONE (10:11)
[2020-04-08] MEDS ORDERED: FUROSEMIDE 10 MG/ML 4ML VIAL IV SCH ×2 (10:15→12:30)
[2020-04-08 10:16] LABS: ABG HCO3 15.8 mmol/L (21.0-28.0); ABG OXYGEN SATURATION 91.6 % (95.0-99.0); ABG PCO2 34 mmHg (35-48)
[2020-04-08] MEDS ORDERED: METOPROLOL TARTRATE 1 MG/ML 5ML VIAL IV ONE ×2 (10:19→11:12)
--- NOTE | 2020-04-08 11:00 | NUR ---
Rapid response called after patient experiencing respiratory distress post push enteroscopy in GI lab. As per primary nurse, Maynor, patient returned to floor with disconnected IV line and empty 1 liter bag of normal saline and 1 half empty bag of normal saline. 40mg IV lasix administered at 1013, Bipap started at 1015 with setting 14/8, metoprolol 5mg IV administered at 1020. Admission status upgraded to ICU as per Blanca Garrett EDITORIAL MANAGER. ICU bed requested at 1025. Bed assigned at 1030. Patient started vomiting, pink, frothy emesis prior to transfer. STAT intubation ordered and contacted SECURITY EXPERT. Patient transfered to ICU RM 216 and intubated in ICU.
--- NOTE | 2020-04-08 11:00 | NUR ---
DURING BEDSIDE SHIFT REPORT, THE PATIENT WAS NOT IN THE ROOM, HE WAS ALREADY TAKEN FOR THE PUSH ENTEROSCOPY. AT 945 THE PATIENT CAME BACK TO THE FLOOR AND POST OP VITAL SIGNS WERE TAKEN, ALL VITAL SIGNS WERE WITHIN NORMAL LIMITS. THE PATIENT ASKED TO GO TO THE RESTROOM AND HAD A BOWEL MOVEMENT. THE PATIENTS DAUGHTER AND THE PATIENT BOTH COMPLAINED THAT THE PATIENT WAS EXPERIENCING A COUGH, I WENT INTO THE ROOM AND THE PATIENT WAS IN DISTRESS. VITAL SIGNS WERE TAKEN AND BP WAS ELEVATED AND OXYGEN SATURATIONS DROPPED DOWN TO 75%. I IMMEDIATLY PLACED PATIENT ON NASAL CANULA AND PUT IT ON 15 LITERS AND NOTIFIED A NURSE TO CALL A RAPID, THE RAPID WAS CALLED BY THE CHARGE NURSE CLAUDIO. THE PATIENT WAS GIVEN 40 MG OF FUROSEMIDE IV LASIX AT 1013, BIPAP STARTED AT 1015 WITH SETTING OF 14/8, AND METOPROLOL 5MG IV ADMINISTERED AT 1020. SIVA JENKINS ROUGHER MACHINE OPERATOR REQUESTED PATIENT BE MOVED TO ICU AND REPORT WAS CALLED AND BED REQUESTED AT 1025 AND BED WAS ASSIGNED AT 1030. PATIENT VOMITED PINK TINGED FROTHY SPUTUM INTO BIPAP. PATIENT WAS THEN TRANSFERRED TO ICU AND INTO ROOM 216 WHERE HE WAS LATER INTUBATED.
[2020-04-08] MEDS ORDERED: PROPOFOL 1000 MG/100 ML 100 ML IV ONE ×2 (11:12→16:14)
[2020-04-08] MEDS ORDERED: MIDAZOLAM 100MG-0.9% NS 100ML 100 ML IV ONE (11:13)
[2020-04-08] MEDS ORDERED: VANCOMYCIN PROTOCOL PER PHARMACY IV SCH (11:45)
[2020-04-08] MEDS ORDERED: RENAL DOSE IV PRN (11:45)
[2020-04-08] MEDS ORDERED: VANCOMYCIN 1GM+NS 250ML 250 ML IV SCH (11:45)
[2020-04-08 11:53] LABS: ABG HCO3 14.8 mmol/L (21.0-28.0); ABG OXYGEN SATURATION 92.8 % (95.0-99.0); ABG PCO2 37 mmHg (35-48)
[2020-04-08] MEDS: CEFEPIME HCL 1 GM VIAL IVP SCH (12:00)
[2020-04-08] MEDS ORDERED: SODIUM BICARB 50MEQ 50ML VIAL IV SCH (12:21)
[2020-04-08] MEDS ORDERED: SODIUM BICARBONATE 650 MG TAB PO SCH ×2 (12:30→21:00)
[2020-04-08] MEDS ORDERED: PHENYLEPHRINE HCL 50 MG in SODIUM CHLORIDE 0.9% 250 ML IV PRN (14:00)
[2020-04-08 14:11] LABS: APPEARANCE,URINE CLOUDY (CLEAR); BILIRUBIN,URINE NEGATIVE (NEGATIVE); COLOR,URINE YELLOW (YELLOW); GLUCOSE, URINE (UA) NEGATIVE (NEGATIVE); KETONES,URINE NEGATIVE (NEGATIVE); LEUKOCYTE ESTERASE ,URINE NEGATIVE (NEGATIVE); NITRATE,URINE NEGATIVE (NEGATIVE); OCCULT BLOOD,URINE TRACE-INTACT (NEGATIVE); PH,URINE 5.5 (5.0-8.0); PROTEIN,URINE TRACE mg/dL (NEGATIVE); UROBILINOGEN,URINE 0.2 mg/dL (0.2-1.0)
[2020-04-08 14:45] LABS: AMORPHOUS SEDIMENT,UR Moderate /LPF (None Seen); BACTERIA,URINE Rare /HPF (None Seen); SQUAMOUS EPITHELIAL CELL,UR Few /HPF (0-2); WBC,URINE 0-1 /HPF (0-1)
[2020-04-08] MEDS: MIDAZOLAM 100MG-0.9% NS 100ML 100ML BAG IV SCH (15:00)
[2020-04-08] MEDS: SODIUM CHLORIDE 0.9% 1000ML 1,000 ML IV SCH (16:00)
[2020-04-08 16:56] LABS: ABG BASE EXCESS -4.9 mmol/L (-2.0-3.0); ABG HCO3 18.8 mmol/L (21.0-28.0); ABG OXYGEN SATURATION 98.4 % (95.0-99.0); ABG PCO2 32 mmHg (35-48)
[2020-04-08 18:29] LABS: HEMATOCRIT 32.3 % (42-54)
[2020-04-08] MEDS ORDERED: PHENYLEPHRINE HCL 10 MG in SODIUM CHLORIDE 0.9% 250 ML IV PRN (20:45)
[2020-04-08] MEDS: PANTOPRAZOLE 40 MG/VIAL IVP SCH (20:57)
[2020-04-08] MEDS: METOPROLOL TARTRATE 25 MG TAB PO SCH (21:00)
[2020-04-08] MEDS: PROPOFOL 1000 MG/100 ML 100 ML IV SCH ×2 (22:33→23:00)
[2020-04-09] VITALS (68 sets, daily range): BP systolic 83–143; BP diastolic 42–90
[2020-04-09 00:33] LABS: HEMATOCRIT 32.6 % (42-54)
[2020-04-09 03:28] LABS: HEMATOCRIT 32.2 % (42-54); MEAN CORPUSCULAR HEMOGLOBIN 27.5 pg (27.0-33.0); MEAN CORPUSCULAR VOLUME 85.9 fL (79-99); RED BLOOD CELL COUNT(AUTO) 3.75 MIL/uL (4.50-6.20); RED CELL DISTRIBUTION WIDTH 15.8 % (11.0-15.5); WHITE BLOOD COUNT (AUTO) 24.7 K/uL (4.8-10.8)
[2020-04-09 03:45] LABS: CREATININE 3.2 mg/dL (0.5-1.5); MAGNESIUM 1.8 mg/dL (1.80-2.40); PHOSPHORUS 4.1 mg/dL (2.5-4.9); POTASSIUM 4.1 mmol/L (3.5-5.1)
[2020-04-09 05:12] LABS: ABG BASE EXCESS -6.9 mmol/L (-2.0-3.0); ABG HCO3 16.1 mmol/L (21.0-28.0); ABG OXYGEN SATURATION 93.2 % (95.0-99.0); ABG PCO2 27 mmHg (35-48)
[2020-04-09] MEDS ORDERED: SODIUM CHLORIDE 0.9% 250 ML IV ONE (06:03)
[2020-04-09] MEDS ORDERED: PHENYLEPHRINE HCL 10 MG/ML 1ML VIAL IV ONE (06:03)
[2020-04-09] MEDS: SODIUM CHLORIDE 0.9% 1000ML 1,000 ML IV SCH ×2 (06:26→18:40)
[2020-04-09] MEDS: INSULIN HUMULIN R 100 UNIT/ML 3ML SQ SCH ×3 (06:26→18:12)
[2020-04-09] MEDS: PROPOFOL 1000 MG/100 ML 100 ML IV SCH ×4 (06:29→23:25)
[2020-04-09] MEDS: ATORVASTATIN CALCIUM 40 MG TABLET PO SCH (08:04)
[2020-04-09] MEDS: PANTOPRAZOLE 40 MG/VIAL IVP SCH ×2 (08:04→21:46)
[2020-04-09] MEDS: METOPROLOL TARTRATE 25 MG TAB PO SCH ×2 (09:00→21:00)
[2020-04-09] MEDS: HYDRALAZINE HCL 10 MG TABLET PO SCH (09:00)
[2020-04-09] MEDS: MIDAZOLAM 100MG-0.9% NS 100ML 100ML BAG IV SCH (09:08)
[2020-04-09] MEDS: SODIUM BICARBONATE 650 MG TAB PO SCH ×3 (09:24→18:09)
[2020-04-09] MEDS: IPRATROPIUM 0.5 MG/2.5 ML INH IH SCH ×3 (11:03→23:05)
[2020-04-09] MEDS ORDERED: MIDAZOLAM HCL 1 MG/ML 2ML VIAL ONE (11:27)
[2020-04-09] MEDS ORDERED: EPINEPHRINE 1 MG/ML AMPULE ONE (11:28)
[2020-04-09] MEDS: CEFEPIME HCL 1 GM VIAL IVP SCH (11:38)
[2020-04-09 11:42] LABS: HEMATOCRIT 33.9 % (42-54)
[2020-04-09] MEDS: LINEZOLID 600 MG/ISO-OSM 300 ML IV SCH (13:16)
[2020-04-09] MEDS: ZOSYN 3.375GM+NS 50ML 50 ML IV SCH (13:16)
--- NOTE | 2020-04-09 17:00 | NUR ---
Blanca Acevedo LEG BREAKER called due to poor 02 saturations post enteroscopy. Discussed low 02 sats depite ventilator settings: Rate 24, TV 500, Fi02 100, Peep 8. LEG BREAKER ordered a STAT chest X ray and recommended proning patient to see if saturations get better.
[2020-04-10] VITALS (24 sets, daily range): BP systolic 109–165; BP diastolic 66–102
[2020-04-10] MEDS: INSULIN HUMULIN R 100 UNIT/ML 3ML SQ SCH ×5 (00:22→21:00)
[2020-04-10] MEDS: ZOSYN 3.375GM+NS 50ML 50 ML IV SCH ×2 (00:58→14:14)
[2020-04-10] MEDS: LINEZOLID 600 MG/ISO-OSM 300 ML IV SCH ×2 (00:58→14:14)
[2020-04-10] MEDS: PROPOFOL 1000 MG/100 ML 100 ML IV SCH ×3 (03:14→16:57)
[2020-04-10] MEDS: SODIUM CHLORIDE 0.9% 1000ML 1,000 ML IV SCH ×2 (03:29→19:28)
[2020-04-10 03:35] LABS: HEMATOCRIT 28.4 % (42-54); MEAN CORPUSCULAR HEMOGLOBIN 27.6 pg (27.0-33.0); MEAN CORPUSCULAR HGB CONC 33.1 g/dL (32.0-36.0); MEAN CORPUSCULAR VOLUME 83.5 fL (79-99); RED BLOOD CELL COUNT(AUTO) 3.4 MIL/uL (4.50-6.20); RED CELL DISTRIBUTION WIDTH 16.1 % (11.0-15.5); WHITE BLOOD COUNT (AUTO) 25.2 K/uL (4.8-10.8)
[2020-04-10 03:51] LABS: ALBUMIN 1.9 g/dL (3.5-5.0); BILIRUBIN,TOTAL 0.6 mg/dL (0.2-1.0); CREATININE 2.8 mg/dL (0.5-1.5); POTASSIUM 3.3 mmol/L (3.5-5.1); TOTAL PROTEIN, SERUM 5.7 g/dL (6.0-8.3)
[2020-04-10 04:29] LABS: ABG BASE EXCESS -5.4 mmol/L (-2.0-3.0); ABG HCO3 16.2 mmol/L (21.0-28.0); ABG OXYGEN SATURATION 99.3 % (95.0-99.0); ABG PCO2 23 mmHg (35-48)
[2020-04-10] MEDS ORDERED: MIDAZOLAM 100MG-0.9% NS 100ML 100 ML IV ONE (06:14)
[2020-04-10] MEDS: IPRATROPIUM 0.5 MG/2.5 ML INH IH SCH ×3 (06:56→19:06)
[2020-04-10] MEDS: ATORVASTATIN CALCIUM 40 MG TABLET PO SCH (07:34)
[2020-04-10] MEDS: SODIUM BICARBONATE 650 MG TAB PO SCH ×3 (07:34→16:52)
[2020-04-10] MEDS: PANTOPRAZOLE 40 MG/VIAL IVP SCH ×2 (07:41→21:01)
[2020-04-10] MEDS: METOPROLOL TARTRATE 25 MG TAB PO SCH ×2 (09:00→21:01)
--- NOTE | 2020-04-10 16:00 | NUR ---
DISCUSSED DC PLAN WITH DAUGHTER AT BEDSIDE DAUGHTER STATES PATIENT HAS BEEN TO [facility] IN THE PAST AFTER HIS STROKE AND IF HE NEEDS TO GO TO AFTERCARE, THAT IS THE PREFERRED SITE. WILL MAKE NOTE OF THAT AND PASS ONTO CM'S Addendum: 04/11/20 at 1922 by JEWELS ROBLES RN CM Amended: Links added.
[2020-04-11] VITALS (26 sets, daily range): BP systolic 131–169; BP diastolic 70–105
[2020-04-11] MEDS: LINEZOLID 600 MG/ISO-OSM 300 ML IV SCH ×2 (01:00→14:36)
[2020-04-11] MEDS: ZOSYN 3.375GM+NS 50ML 50 ML IV SCH ×2 (01:00→14:36)
[2020-04-11] MEDS: IPRATROPIUM 0.5 MG/2.5 ML INH IH SCH ×5 (02:26→23:50)
[2020-04-11] MEDS: HYDROMORPHONE HCL 0.5 MG/0.5 ML ML IVP PRN (03:25)
[2020-04-11 03:57] LABS: HEMATOCRIT 27.7 % (42-54); MEAN CORPUSCULAR HEMOGLOBIN 27.5 pg (27.0-33.0); MEAN CORPUSCULAR HGB CONC 32.5 g/dL (32.0-36.0); MEAN CORPUSCULAR VOLUME 84.7 fL (79-99); NUCLEATED RED BLOOD CELLS 0.1 % (0.0-0.19); RED BLOOD CELL COUNT(AUTO) 3.27 MIL/uL (4.50-6.20); RED CELL DISTRIBUTION WIDTH 16.5 % (11.0-15.5); WHITE BLOOD COUNT (AUTO) 24.3 K/uL (4.8-10.8)
[2020-04-11 04:13] LABS: ABG BASE EXCESS -3.2 mmol/L (-2.0-3.0); ABG HCO3 18.7 mmol/L (21.0-28.0); ABG OXYGEN SATURATION 99.5 % (95.0-99.0); ABG PCO2 26 mmHg (35-48)
[2020-04-11 04:28] LABS: CREATININE 2.6 mg/dL (0.5-1.5); MAGNESIUM 1.6 mg/dL (1.80-2.40); POTASSIUM 3.3 mmol/L (3.5-5.1)
[2020-04-11] MEDS: INSULIN HUMULIN R 100 UNIT/ML 3ML SQ SCH ×4 (06:07→21:00)
[2020-04-11] MEDS: ATORVASTATIN CALCIUM 40 MG TABLET PO SCH (11:28)
[2020-04-11] MEDS: PANTOPRAZOLE 40 MG/VIAL IVP SCH ×2 (11:28→20:04)
[2020-04-11] MEDS: SODIUM BICARBONATE 650 MG TAB PO SCH ×3 (11:29→17:40)
[2020-04-11] MEDS: SODIUM CHLORIDE 0.9% 1000ML 1,000 ML IV SCH (11:30)
[2020-04-11] MEDS: METOPROLOL TARTRATE 25 MG TAB PO SCH ×2 (11:33→20:05)
--- NOTE | 2020-04-11 16:34 | NUR ---
RDSCREEN - LOS X 10 Pt admitted with GI Bleed, Anemia. NPO since x4 days. Weaning from sedation at this time, as per RN. Monitored labs: BUN 48, K 3.3, Na 146, WBC 24.3, CO2 20, Cr 2.6, GFR 26, BG 155, Ca 8.3, Mg 1.60, Alb 1.9. Pending GI evaluation and recommendation for diet advancement as per EMR. NaCl, Protonix, Lipitor, Dialuadid, Piperacillin, Sodium Bicarbonate medications in place. Bilateral Foot/Ankle 3+ edema. Recommend consider alternate means nutrition if NPO expected greater than 5-7 days. Recommend monitor of renal function Recommend monitor of serum magnesium and serum potassium levels. RD to continue to monitor.
[2020-04-11] MEDS ORDERED: LIDOCAINE HCL-MPF 1% 2ML VIAL IV PRN (18:00)
[2020-04-11] MEDS ORDERED: POTASSIUM CHLORIDE 10MEQ/100ML 100 ML IV PRN (18:00)
[2020-04-11] MEDS ORDERED: MIDAZOLAM HCL 1 MG/ML 2ML VIAL IV PRN (18:00)
[2020-04-11] MEDS ORDERED: MAGNESIUM 2GM PREMIX 50ML 50 ML IV PRN (18:00)
[2020-04-11] MEDS ORDERED: MORPHINE SULFATE 2 MG/ML 1ML SYG IM PRN (18:00)
[2020-04-12] VITALS (14 sets, daily range): BP systolic 112–172; BP diastolic 60–107
[2020-04-12] MEDS ORDERED: POTASSIUM CHLORIDE 10% ELIXIR 20 MEQ/15 ML UDCUP ONE (00:43)
[2020-04-12] MEDS: LINEZOLID 600 MG/ISO-OSM 300 ML IV SCH ×3 (01:53→23:50)
[2020-04-12] MEDS: ZOSYN 3.375GM+NS 50ML 50 ML IV SCH ×3 (01:53→23:53)
[2020-04-12 03:53] LABS: BASOPHILS % (AUTO) 0.1 % (0.0-5.0); EOSINOPHILS % (AUTO) 0.3 % (0.0-8.0); HEMATOCRIT 30.4 % (42-54); LYMPHOCYTES % (AUTO) 3.7 % (21.0-51.0); MEAN CORPUSCULAR HEMOGLOBIN 27.4 pg (27.0-33.0); MEAN CORPUSCULAR HGB CONC 31.6 g/dL (32.0-36.0); MEAN CORPUSCULAR VOLUME 86.9 fL (79-99); MONOCYTES % (AUTO) 1.7 % (3.0-13.0); NEUTROPHILS % (AUTO) 93.7 % (40.0-77.0); PLATELET COUNT (AUTO) 186 K/uL (130-400); RED CELL DISTRIBUTION WIDTH 16.7 % (11.0-15.5); WHITE BLOOD COUNT (AUTO) 20.6 K/uL (4.8-10.8)
[2020-04-12 04:10] LABS: CREATININE 2.7 mg/dL (0.5-1.5); MAGNESIUM 2.9 mg/dL (1.80-2.40); PHOSPHORUS 3.1 mg/dL (2.5-4.9); POTASSIUM 4.1 mmol/L (3.5-5.1)
[2020-04-12 04:37] LABS: ABG BASE EXCESS -2.7 mmol/L (-2.0-3.0); ABG HCO3 20.1 mmol/L (21.0-28.0); ABG OXYGEN SATURATION 95.2 % (95.0-99.0); ABG PCO2 30 mmHg (35-48)
[2020-04-12] MEDS: IPRATROPIUM 0.5 MG/2.5 ML INH IH SCH ×4 (06:18→23:17)
[2020-04-12] MEDS: INSULIN HUMULIN R 100 UNIT/ML 3ML SQ SCH ×4 (06:58→20:43)
[2020-04-12] MEDS: METOPROLOL TARTRATE 25 MG TAB PO SCH ×2 (09:26→20:41)
[2020-04-12] MEDS: SODIUM BICARBONATE 650 MG TAB PO SCH ×3 (09:26→17:01)
[2020-04-12] MEDS: PANTOPRAZOLE 40 MG/VIAL IVP SCH ×2 (09:26→20:43)
[2020-04-12] MEDS: ATORVASTATIN CALCIUM 40 MG TABLET PO SCH (09:26)
[2020-04-12] MEDS: LABETALOL 20 MG/4 ML DISP.SYRIN IV PRN (10:58)
[2020-04-12] MEDS: SODIUM CHLORIDE 0.9% 1000ML 1,000 ML IV SCH ×2 (13:20)
[2020-04-12] MEDS ORDERED: LABETALOL 20 MG/4 ML DISP.SYRIN IV SCH (21:45)
[2020-04-12 23:05] LABS: ABG BASE EXCESS -2.6 mmol/L (-2.0-3.0); ABG HCO3 20.1 mmol/L (21.0-28.0); ABG OXYGEN SATURATION 95.3 % (95.0-99.0); ABG PCO2 30 mmHg (35-48)
[2020-04-13] VITALS (27 sets, daily range): BP systolic 139–172; BP diastolic 57–111
[2020-04-13 03:40] LABS: HEMATOCRIT 31.3 % (42-54); MEAN CORPUSCULAR HEMOGLOBIN 27.6 pg (27.0-33.0); MEAN CORPUSCULAR HGB CONC 31.9 g/dL (32.0-36.0); MEAN CORPUSCULAR VOLUME 86.5 fL (79-99); NUCLEATED RED BLOOD CELLS 0.1 % (0.0-0.19); RED BLOOD CELL COUNT(AUTO) 3.62 MIL/uL (4.50-6.20); RED CELL DISTRIBUTION WIDTH 16.4 % (11.0-15.5); WHITE BLOOD COUNT (AUTO) 16.9 K/uL (4.8-10.8)
[2020-04-13 03:41] LABS: CREATININE 2.8 mg/dL (0.5-1.5); POTASSIUM 3.9 mmol/L (3.5-5.1)
[2020-04-13] MEDS: LABETALOL 20 MG/4 ML DISP.SYRIN IV PRN (04:25)
[2020-04-13] MEDS: INSULIN HUMULIN R 100 UNIT/ML 3ML SQ SCH ×4 (05:29→20:52)
[2020-04-13] MEDS: IPRATROPIUM 0.5 MG/2.5 ML INH IH SCH ×3 (06:47→18:33)
[2020-04-13] MEDS: PANTOPRAZOLE 40 MG/VIAL IVP SCH ×2 (07:48→20:50)
[2020-04-13] MEDS: ATORVASTATIN CALCIUM 40 MG TABLET PO SCH (07:48)
[2020-04-13] MEDS: SODIUM BICARBONATE 650 MG TAB PO SCH ×3 (07:48→20:50)
[2020-04-13] MEDS: METOPROLOL TARTRATE 25 MG TAB PO SCH ×2 (07:48→20:50)
[2020-04-13] MEDS: ZOSYN 3.375GM+NS 50ML 50 ML IV SCH (12:21)
[2020-04-13] MEDS: ENOXAPARIN SODIUM 80 MG/0.8 ML SQ SCH (12:24)
[2020-04-13] MEDS ORDERED: FUROSEMIDE 10 MG/ML 2ML VIAL IV SCH (14:00)
[2020-04-13] MEDS: LINEZOLID 600 MG/ISO-OSM 300 ML IV SCH (15:09)
[2020-04-14] VITALS (21 sets, daily range): BP systolic 136–173; BP diastolic 82–113
[2020-04-14] MEDS: LINEZOLID 600 MG/ISO-OSM 300 ML IV SCH ×3 (00:19→23:03)
[2020-04-14] MEDS: LABETALOL 20 MG/4 ML DISP.SYRIN IV PRN ×2 (00:19→15:36)
[2020-04-14] MEDS: ZOSYN 3.375GM+NS 50ML 50 ML IV SCH ×3 (00:19→23:59)
[2020-04-14] MEDS: IPRATROPIUM 0.5 MG/2.5 ML INH IH SCH ×4 (01:13→18:33)
[2020-04-14 04:53] LABS: ABG BASE EXCESS -1.9 mmol/L (-2.0-3.0); ABG HCO3 21.5 mmol/L (21.0-28.0); ABG OXYGEN SATURATION 98.3 % (95.0-99.0); ABG PCO2 33 mmHg (35-48)
[2020-04-14 05:02] LABS: HEMATOCRIT 29.4 % (42-54); MEAN CORPUSCULAR HEMOGLOBIN 26.6 pg (27.0-33.0); MEAN CORPUSCULAR HGB CONC 30.6 g/dL (32.0-36.0); PLATELET COUNT (AUTO) 128 K/uL (130-400); RED BLOOD CELL COUNT(AUTO) 3.38 MIL/uL (4.50-6.20); RED CELL DISTRIBUTION WIDTH 16.7 % (11.0-15.5); WHITE BLOOD COUNT (AUTO) 12.1 K/uL (4.8-10.8)
[2020-04-14 05:21] LABS: CREATININE 3.2 mg/dL (0.5-1.5)
[2020-04-14] MEDS: INSULIN HUMULIN R 100 UNIT/ML 3ML SQ SCH ×4 (06:48→21:27)
[2020-04-14] MEDS: ATORVASTATIN CALCIUM 40 MG TABLET PO SCH (08:06)
[2020-04-14] MEDS: METOPROLOL TARTRATE 25 MG TAB PO SCH ×2 (08:06→20:14)
[2020-04-14] MEDS: ENOXAPARIN SODIUM 80 MG/0.8 ML SQ SCH (08:07)
[2020-04-14] MEDS: PANTOPRAZOLE 40 MG/VIAL IVP SCH ×2 (08:07→20:14)
[2020-04-14] MEDS: DEXTROSE 5%-WATER 1,000 ML IV SCH ×2 (09:05→17:45)
[2020-04-14] MEDS ORDERED: SODIUM BICARB 8.4% 50ML SYRINGE IVP ONE (14:16)
[2020-04-14] MEDS ORDERED: NALOXONE HCL 0.4 MG/1 ML ML IVP ONE (14:16)
[2020-04-14] MEDS ORDERED: EPINEPHRINE 0.1 MG/ML 10 ML SYG IVP ONE (14:16)
[2020-04-14 16:02] LABS: CREATININE 3.2 mg/dL (0.5-1.5); POTASSIUM 4.1 mmol/L (3.5-5.1)
[2020-04-14] MEDS: PHARMACY COMMUNICATION MISC SCH (17:15)
[2020-04-15] VITALS (23 sets, daily range): BP systolic 127–165; BP diastolic 76–102
[2020-04-15] MEDS: IPRATROPIUM 0.5 MG/2.5 ML INH IH SCH ×4 (00:13→18:09)
[2020-04-15] MEDS: PHARMACY COMMUNICATION MISC SCH ×8 (01:15→23:59)
[2020-04-15] MEDS: DEXTROSE 5%-WATER 1,000 ML IV SCH ×3 (03:45→22:06)
[2020-04-15] MEDS: INSULIN HUMULIN R 100 UNIT/ML 3ML SQ SCH ×4 (05:39→21:00)
[2020-04-15 06:03] LABS: HEMATOCRIT 28.6 % (42-54); MEAN CORPUSCULAR HEMOGLOBIN 26.8 pg (27.0-33.0); MEAN CORPUSCULAR HGB CONC 30.8 g/dL (32.0-36.0); MEAN CORPUSCULAR VOLUME 87.2 fL (79-99); NUCLEATED RED BLOOD CELLS 0.3 % (0.0-0.19); RED BLOOD CELL COUNT(AUTO) 3.28 MIL/uL (4.50-6.20); RED CELL DISTRIBUTION WIDTH 16.7 % (11.0-15.5); WHITE BLOOD COUNT (AUTO) 10.4 K/uL (4.8-10.8)
[2020-04-15 06:15] LABS: CREATININE 3.1 mg/dL (0.5-1.5); POTASSIUM 3.9 mmol/L (3.5-5.1)
[2020-04-15 07:07] LABS: ABG BASE EXCESS -2.9 mmol/L (-2.0-3.0); ABG HCO3 20.8 mmol/L (21.0-28.0); ABG OXYGEN SATURATION 98.9 % (95.0-99.0); ABG PCO2 34 mmHg (35-48)
[2020-04-15] MEDS: ATORVASTATIN CALCIUM 40 MG TABLET PO SCH (08:41)
[2020-04-15] MEDS: ENOXAPARIN SODIUM 80 MG/0.8 ML SQ SCH (08:43)
[2020-04-15] MEDS: FUROSEMIDE 10 MG/ML 10ML VIAL IVP SCH ×2 (08:44→21:06)
[2020-04-15] MEDS: PANTOPRAZOLE 40 MG/VIAL IVP SCH (08:44)
[2020-04-15] MEDS ORDERED: METOPROLOL TARTRATE 25 MG TAB PO SCH (09:00)
[2020-04-15 10:28] LABS: ABG HCO3 20.9 mmol/L (21.0-28.0); ABG OXYGEN SATURATION 98.7 % (95.0-99.0); ABG PCO2 34 mmHg (35-48)
[2020-04-15] MEDS ORDERED: PANTOPRAZOLE SODIUM 40 MG TABLET.DR PO SCH (10:52)
[2020-04-15] MEDS: ZOSYN 3.375GM+NS 50ML 50 ML IV SCH (12:26)
[2020-04-15] MEDS: LINEZOLID 600 MG/ISO-OSM 300 ML IV SCH ×2 (12:26→23:17)
--- NOTE | 2020-04-15 13:08 | NUR ---
RD FOLLOW UP Pt s/p extubation today. Pending swallow evaluation as per RN. Monitored labs: H/H 8.8/28.6, Na 148, Cl 115, BUN 60, Cr 3.1, GFR 21, BG 193. Piperacillin, Linezolid, Humulin R, Atrovent, Lasix, Lovenox, Lopressor, Lipitor medications in place. Bilateral Foot and ankle 3+ pitting edema. When medically feasible, recommend advance diet as tolerated to GI Soft, Renal Non Dialysis diet order. Recommend monitor hydration. RD to continue to monitor. Addendum: 04/15/20 at [address] Amended: Links added.
--- NOTE | 2020-04-15 16:00 | NUR ---
DYSPHAGIA EVAL COMPLETED. +S/S OF ASPIRATION WITH THIN AND PUREED TEXTURE. RECOMMEND NPO, SHORT-TERM ALTERNATE MEANS OF NUTRITION/HYDRATION. RECOMMENDATIONS: 1. RE-EVALUATION IN 1-2 DAYS. Addendum: 04/16/20 at 0730 by JUAN SILVERIO, [facility] ST Amended: Links added.
[2020-04-15] MEDS: FAMOTIDINE/PF 20 MG/2 ML VIAL IV SCH (21:06)
[2020-04-15] MEDS: METOPROLOL TARTRATE 1 MG/ML 5ML VIAL IV SCH (21:08)
[2020-04-16] VITALS (31 sets, daily range): BP systolic 96–158; BP diastolic 70–110
[2020-04-16] MEDS: IPRATROPIUM 0.5 MG/2.5 ML INH IH SCH ×4 (00:11→18:49)
[2020-04-16] MEDS: ZOSYN 3.375GM+NS 50ML 50 ML IV SCH ×3 (00:39→23:18)
[2020-04-16] MEDS: METOPROLOL TARTRATE 1 MG/ML 5ML VIAL IV SCH ×5 (03:00→23:19)
[2020-04-16] MEDS: PHARMACY COMMUNICATION MISC SCH ×12 (03:00→22:15)
[2020-04-16 05:17] LABS: BASOPHILS % (AUTO) 0.1 % (0.0-5.0); EOSINOPHILS % (AUTO) 0.1 % (0.0-8.0); HEMATOCRIT 30.2 % (42-54); LYMPHOCYTES % (AUTO) 5.7 % (21.0-51.0); MEAN CORPUSCULAR HEMOGLOBIN 26.8 pg (27.0-33.0); MEAN CORPUSCULAR HGB CONC 30.8 g/dL (32.0-36.0); MONOCYTES % (AUTO) 1.7 % (3.0-13.0); NEUTROPHILS % (AUTO) 91.9 % (40.0-77.0); NUCLEATED RED BLOOD CELLS 0.3 % (0.0-0.19); PLATELET COUNT (AUTO) 120 K/uL (130-400); RED BLOOD CELL COUNT(AUTO) 3.47 MIL/uL (4.50-6.20); WHITE BLOOD COUNT (AUTO) 14.1 K/uL (4.8-10.8)
[2020-04-16 05:47] LABS: ALBUMIN 1.7 g/dL (3.5-5.0); CREATININE 3.4 mg/dL (0.5-1.5); MAGNESIUM 2.7 mg/dL (1.80-2.40); PHOSPHORUS 4.4 mg/dL (2.5-4.9); POTASSIUM 4.1 mmol/L (3.5-5.1); TOTAL PROTEIN, SERUM 6.3 g/dL (6.0-8.3)
[2020-04-16 05:48] LABS: ABG BASE EXCESS -3.8 mmol/L (-2.0-3.0); ABG HCO3 19.2 mmol/L (21.0-28.0); ABG OXYGEN SATURATION 98.2 % (95.0-99.0); ABG PCO2 30 mmHg (35-48)
--- NOTE | 2020-04-16 06:27 | NUR ---
AM chest x-ray shows left lobes rosalio out. Pt saturating 97% on 3 liters n/c. ABGS drawn. Remains in afib , rate fluctuating 90- 121, BP 144/88. Sleepy but awakens easily . Neuro v/s unchanged. 0550 Call placed to [employer] business continuity strategy director). Awaiting call back.
[2020-04-16] MEDS: INSULIN HUMULIN R 100 UNIT/ML 3ML SQ SCH ×4 (07:30→21:00)
[2020-04-16] MEDS: ENOXAPARIN SODIUM 80 MG/0.8 ML SQ SCH (08:11)
[2020-04-16] MEDS: FUROSEMIDE 10 MG/ML 10ML VIAL IVP SCH ×2 (08:12→20:22)
[2020-04-16] MEDS: ATORVASTATIN CALCIUM 40 MG TABLET PO SCH (08:13)
[2020-04-16] MEDS: LABETALOL 20 MG/4 ML DISP.SYRIN IV PRN (09:17)
[2020-04-16] MEDS: DEXTROSE 5%-WATER 1,000 ML IV SCH ×2 (09:45→20:16)
--- NOTE | 2020-04-16 10:37 | NUR ---
CARDIOLOGY Heart clinic paged to address on going heart atrial fibrillation. Spoke to Margo to page objects conservator. Awaiting callback from
--- NOTE | 2020-04-16 11:00 | NUR ---
CARDIOLOGY CALL BACK Sharyn BUS VAN DRIVER called back. BUS VAN DRIVER enquired about patient status. BUS VAN DRIVER states labile A-fib is probably compensatory from fluid in left lung. BUS VAN DRIVER to talk to t rail turner communications representative and come to bedside later in the day.
[2020-04-16] MEDS: ACETYLCYSTEINE 20% 200MG/ML 4ML VIAL IH SCH ×2 (11:56→18:49)
[2020-04-16] MEDS: LINEZOLID 600 MG/ISO-OSM 300 ML IV SCH ×2 (12:37→23:19)
--- NOTE | 2020-04-16 14:00 | NUR ---
HOLD RE-EVAL. Pt LETHARGIC NOT ABLE TO PARTICIPATE IN RE-EVALUATION AT THIS TIME. TRANSIT PLANNING MANAGER COORDINATED WITH DAUGHTER GISELA AT BEDSIDE ON RE-EVALUATION TO BE COMPLETED WHEN CURRENT STATUS IMPROVES. SHE VERBALIZED AGREEMENT AND UNDERSTANDING. ALL QUESTIONS ANSWERED AT THIS TIME. Addendum: 04/17/20 at 1304 by JUAN SILVERIO, [facility] ST Amended: Links added.
[2020-04-16] MEDS: FAMOTIDINE/PF 20 MG/2 ML VIAL IV SCH (20:22)
[2020-04-17] VITALS (24 sets, daily range): BP systolic 110–166; BP diastolic 40–114
[2020-04-17] MEDS: PHARMACY COMMUNICATION MISC SCH ×15 (00:15→22:15)
[2020-04-17] MEDS: ACETYLCYSTEINE 20% 200MG/ML 4ML VIAL IH SCH ×4 (00:33→18:18)
[2020-04-17] MEDS: IPRATROPIUM 0.5 MG/2.5 ML INH IH SCH ×4 (00:33→18:18)
[2020-04-17 03:38] LABS: BASOPHILS % (AUTO) 0.1 % (0.0-5.0); EOSINOPHILS % (AUTO) 0.1 % (0.0-8.0); HEMATOCRIT 28.8 % (42-54); LYMPHOCYTES % (AUTO) 7.4 % (21.0-51.0); MEAN CORPUSCULAR HEMOGLOBIN 26.6 pg (27.0-33.0); MEAN CORPUSCULAR HGB CONC 30.9 g/dL (32.0-36.0); NEUTROPHILS % (AUTO) 89.8 % (40.0-77.0); NUCLEATED RED BLOOD CELLS 0.2 % (0.0-0.19); PLATELET COUNT (AUTO) 100 K/uL (130-400); RED BLOOD CELL COUNT(AUTO) 3.35 MIL/uL (4.50-6.20); RED CELL DISTRIBUTION WIDTH 16.9 % (11.0-15.5); WHITE BLOOD COUNT (AUTO) 13.5 K/uL (4.8-10.8)
[2020-04-17 04:08] LABS: ALBUMIN 1.6 g/dL (3.5-5.0); BILIRUBIN,TOTAL 0.9 mg/dL (0.2-1.0); CREATININE 4.1 mg/dL (0.5-1.5); MAGNESIUM 2.9 mg/dL (1.80-2.40); PHOSPHORUS 5.1 mg/dL (2.5-4.9); POTASSIUM 3.7 mmol/L (3.5-5.1); TOTAL PROTEIN, SERUM 6.3 g/dL (6.0-8.3)
[2020-04-17] MEDS: METOPROLOL TARTRATE 1 MG/ML 5ML VIAL IV SCH ×3 (05:57→18:22)
[2020-04-17] MEDS: DEXTROSE 5%-WATER 1,000 ML IV SCH ×2 (05:58→15:45)
[2020-04-17] MEDS: INSULIN HUMULIN R 100 UNIT/ML 3ML SQ SCH ×4 (07:30→22:31)
[2020-04-17] MEDS: ENOXAPARIN SODIUM 80 MG/0.8 ML SQ SCH (08:17)
--- NOTE | 2020-04-17 09:49 | NUR ---
DIETARY FOLLOW UP Notified Dietitian about several episodes of diarrhea whilst on suplena tube feeds. Dietary to review and send new recommendations.
[2020-04-17] MEDS: LABETALOL 20 MG/4 ML DISP.SYRIN IV PRN (10:01)
[2020-04-17] MEDS: ATORVASTATIN CALCIUM 40 MG TABLET PO SCH (11:35)
--- NOTE | 2020-04-17 13:24 | NUR ---
RD UPDATE RD notification of Pt with diarrhea with Suplena formula tube feeding. Recommend modify formula to Vital AF 1.2 initiated at low rate (20mls) for 24hours. Recommend low goal rate of 35mls/hr monitoring renal dysfunction and protein status. Recommend flushes at 400mls Q6. Recommend 1.2L fluid restriction related to severe Bilateral Foot/Ankle edema. Monitored labs:WBC 13.5, Na 155, Cl 117, BUN 84, Cr 4.1, GFR 15, BG 263, P 5.1, Mg 2.90, AST 64, Alk 239, Alb 1.6. RD to continue to monitor. Please notify as additional nutrition concerns arise. Thank you.
--- NOTE | 2020-04-17 15:15 | NUR ---
Patient assessed by [facility] team. Education provided. Addendum: 04/18/20 at 1237 by ROSANNA HECK LVN Amended: Links added.
--- NOTE | 2020-04-17 15:15 | NUR ---
[facility] Patient assessed by [facility] team. No open wounds noted. Education provided. Addendum: 04/18/20 at 1239 by ROSANNA HECK LVN Amended: Links added.
[2020-04-17] MEDS ORDERED: DEXTROSE 10%-WATER 1,000 ML IV SCH (15:45)
[2020-04-17] MEDS: LINEZOLID 600 MG/ISO-OSM 300 ML IV SCH (15:49)
[2020-04-17] MEDS: FAMOTIDINE/PF 20 MG/2 ML VIAL IV SCH (22:30)
[2020-04-18] VITALS (83 sets, daily range): BP systolic 48–187; BP diastolic 23–138
[2020-04-18] MEDS: PHARMACY COMMUNICATION MISC SCH ×15 (00:15→22:15)
[2020-04-18] MEDS: ACETYLCYSTEINE 20% 200MG/ML 4ML VIAL IH SCH ×4 (00:23→23:30)
[2020-04-18] MEDS: IPRATROPIUM 0.5 MG/2.5 ML INH IH SCH ×5 (00:24→23:29)
[2020-04-18] MEDS: LINEZOLID 600 MG/ISO-OSM 300 ML IV SCH ×2 (02:09→14:29)
[2020-04-18] MEDS: DEXTROSE 5%-WATER 1,000 ML IV SCH (02:09)
[2020-04-18] MEDS: METOPROLOL TARTRATE 1 MG/ML 5ML VIAL IV SCH ×4 (02:10→18:00)
[2020-04-18 03:53] LABS: BASOPHILS % (AUTO) 0.2 % (0.0-5.0); EOSINOPHILS % (AUTO) 0.5 % (0.0-8.0); HEMATOCRIT 29.3 % (42-54); LYMPHOCYTES % (AUTO) 8.5 % (21.0-51.0); MEAN CORPUSCULAR HEMOGLOBIN 26.8 pg (27.0-33.0); MEAN CORPUSCULAR HGB CONC 31.1 g/dL (32.0-36.0); MEAN CORPUSCULAR VOLUME 86.4 fL (79-99); MONOCYTES % (AUTO) 1.8 % (3.0-13.0); NEUTROPHILS % (AUTO) 88.5 % (40.0-77.0); NUCLEATED RED BLOOD CELLS 0.2 % (0.0-0.19); PLATELET COUNT (AUTO) 118 K/uL (130-400); RED BLOOD CELL COUNT(AUTO) 3.39 MIL/uL (4.50-6.20); RED CELL DISTRIBUTION WIDTH 16.7 % (11.0-15.5)
[2020-04-18 04:34] LABS: ALBUMIN 1.5 g/dL (3.5-5.0); BILIRUBIN,TOTAL 0.6 mg/dL (0.2-1.0); CREATININE 4.1 mg/dL (0.5-1.5); MAGNESIUM 2.8 mg/dL (1.80-2.40); PHOSPHORUS 5.4 mg/dL (2.5-4.9); POTASSIUM 3.8 mmol/L (3.5-5.1)
[2020-04-18] MEDS: INSULIN HUMULIN R 100 UNIT/ML 3ML SQ SCH ×4 (06:51→21:23)
[2020-04-18] MEDS: ATORVASTATIN CALCIUM 40 MG TABLET PO SCH (08:00)
[2020-04-18] MEDS: MEROPENEM 1 GM VIAL IVP SCH (08:03)
--- NOTE | 2020-04-18 11:15 | NUR ---
HOLD EVALUATION CAR PINCHER COORDINATED WITH NURSE ZOË AND DAUGHTER GISELA AT BEDSIDE. NURSE REPORTS Pt NPO AT THIS TIME PENDING PEG FOR TODAY. DAUGHTER WITH QUESTIONS ON NG TUBE VS PEG. CAR PINCHER EXPLAINED PEG RECOMMENDED AT THIS TIME BY MD AND CAR PINCHER TO RE-EVALUATE AFTER PEG IN PLACE FOR INITIATION OF INTERVENTION ENSURING ADEQUATE NUTRITION/HYDRATION VIA PEG. SHE VERBALIZED AGREEMENT WITH PLAN. RE-EVALUATION TO BE COMPLETED IN 1-2 DAYS. ALL QUESTIONS ANSWERED BY CAR PINCHER. Addendum: 04/18/20 at 1314 by JUAN SILVERIO [facility] ST Amended: Links added.
[2020-04-18] MEDS ORDERED: PROPOFOL 10 MG/ML 20ML VIAL IV ONE (11:50)
[2020-04-18] MEDS ORDERED: ESMOLOL HCL 10 MG/ML 10 ML VIAL ONE (12:08)
[2020-04-18] MEDS ORDERED: PHENYLEPHRINE HCL 10 MG/ML 1ML VIAL IV ONE (12:19)
--- NOTE | 2020-04-18 12:30 | NUR ---
ENDOSCOPY TEAM PATIENT TAKEN TO ENDOSCOPY LAB ACCOMPANIED BY NURSE, VEENA NICHOLS. NO DISTRESS NOTED. ALL VITAL SIGNS STABLE.
[2020-04-18] MEDS ORDERED: PROPOFOL 1000 MG/100 ML 100 ML IV ONE (12:42)
[2020-04-18] MEDS ORDERED: NOREPINEPHRINE 4MG/NS 250ML 250 ML IV ONE (12:50)
--- NOTE | 2020-04-18 12:50 | NUR ---
RETURNED FROM GI LAB RETURNED FROM ENDOSCOPY S/P INSERTION OF PEG. PER DR. PHILLIPS, PATIENT HAD RECEIVED A SHOT OF PHENYLEPHRINE WHILE DOWNSTAIRS DUE TO LOW BLOOD PRESSURE AND HEART RATE. PATIENT ARRIVED IN ATRIAL FIBRILLATION WITH RAPID VENTRICULAR RESPONSE. PATIENT TO BE STARTED ON PROPOFOL FOR SEDATION, WELL PRN NOREPINEPHRINE TO MAINTAIN MEAN ARTERIAL PRESSURE OF 65 OR MORE. AT THIS TIME, HEART RATE 160'S-170'S, PROPOFOL DRIP STARTED AT 10MCG.
--- NOTE | 2020-04-18 12:55 | NUR ---
LOW BLOOD PRESSURE PATIENT'S B/P AT 36/42. PATIENT CONTINUES WITH ATRIAL FIBRILLATION WITH RVR, RATE SUSTAINED 140'S-150'S.
[2020-04-18] MEDS ORDERED: PROPOFOL 1000 MG/100 ML 100 ML IV PRN (13:00)
--- NOTE | 2020-04-18 13:00 | NUR ---
BRADYCARDIA NOTED BRADYCARDIA, HEART RATE OF 30. PATIENT HAS PULSE AT THIS TIME. SEDATION IS OFF.
--- NOTE | 2020-04-18 13:02 | NUR ---
PATIENT PULSELESS, ASYSTOLE. CODE BLUE CALLED. THIS NURSE BEGAN CHEST COMPRESSIONS X 2 MINUTES. PER ACLS PROTOCOL 1MG OF EPINEPHRINE ADMINISTERED RAPID IV PUSH FOLLOWED BY 10CC NS FLUSH. PATIENT GIVEN 50MEQ OF SODIUM BICARBONATE FOLLOWED BY 10CC FLUSH. DR PHILLIPS AT BEDSIDE. 1305: PATIENT'S PULSE RETURNED. CONTINUES TO BE IN ATRIAL FIBRILLATION WITH RVR, RATE SUSTAINED 160'S-170'S. PATIENT REMAINS CONNECTED TO BEDSIDE MONITOR/DEFIBRILLATOR. TO RECEIVE AMIODARONE BOLUS AND AMIODARONE DRIP PER AMIODARONE INFUSION PROTOCOL. PHARMACY MADE AWARE. NOREPINEPHRINE CONTINUES AT 15MCG/MIN. AGNIESZKA DEL VALLE NP REMAINS AT BEDSIDE 1310: DR Mary Anne BLEDSOE PRESENT AT BEDSIDE, ORDERED ADDITIONAL 1 LITER OF LACTATED RINGER BOLUS. STATES "PATIENT LOOKS DRY." ALSO ORDERED PEG TUBE TO CONNECT TO INTERMITTENT SUCTION.
[2020-04-18 13:17] LABS: ABG BASE EXCESS -12.9 mmol/L (-2.0-3.0); ABG HCO3 13.9 mmol/L (21.0-28.0); ABG OXYGEN SATURATION 84.3 % (95.0-99.0); ABG PCO2 35 mmHg (35-48)
[2020-04-18] MEDS ORDERED: SODIUM BICARB 50MEQ 50ML VIAL 50 ML ONE (13:27)
[2020-04-18] MEDS ORDERED: SODIUM BICARB 50MEQ 50ML VIAL 100 ML ONE (13:28)
[2020-04-18] MEDS ORDERED: AMIODARONE HCL 150 MG in DEXTROSE 5%-WATER 100 ML IV SCH (13:45)
[2020-04-18] MEDS ORDERED: AMIODARONE HCL 360 MG in DEXTROSE 5%-WATER 200 ML IV SCH (13:45)
--- NOTE | 2020-04-18 14:00 | NUR ---
PATIENT CONTINUES WITH SUSTAINED HEART RATE OF 150'S-170'S. RECEIVING AMIODARONE 150MG BOLUS OVER 10 MINUTES. NURSE BEGAN INFUSION OF AMIODARONE 1MG./MIN
--- NOTE | 2020-04-18 14:23 | NUR ---
UPDATE PATIENT'S HEART RATE REMAINS 120'S-130'S. PATIENT SEDATED TO RASS -2. OPENS EYES TO PAINFUL STIMULI. NO FURTHER ORDERS AT THIS TIME. NURSE TO REMAIN AT BEDSIDE 1:1 TO ASSESS/MONITOR PATIENT.
[2020-04-18] MEDS ORDERED: LACTATED RINGERS 1000ML 1,000 ML IV ONE (14:26)
[2020-04-18] MEDS ORDERED: LACTATED RINGERS 1000ML IV SCH (14:30)
[2020-04-18] MEDS: AMIODARONE HCL 450 MG in DEXTROSE 5%-WATER 250 ML IV SCH (16:07)
[2020-04-18] MEDS: NOREPINEPHRINE 4MG/NS 250ML 250 ML IV SCH ×2 (16:14→21:22)
[2020-04-18] MEDS: FAMOTIDINE/PF 20 MG/2 ML VIAL IV SCH (21:24)
[2020-04-19] VITALS (35 sets, daily range): BP systolic 106–146; BP diastolic 47–88
[2020-04-19] MEDS: PHARMACY COMMUNICATION MISC SCH ×16 (00:15→23:56)
[2020-04-19] MEDS: LINEZOLID 600 MG/ISO-OSM 300 ML IV SCH ×2 (02:59→15:25)
[2020-04-19 03:32] LABS: BASOPHILS % (AUTO) 0.1 % (0.0-5.0); EOSINOPHILS % (AUTO) 0.2 % (0.0-8.0); HEMATOCRIT 27.6 % (42-54); LYMPHOCYTES % (AUTO) 5.6 % (21.0-51.0); MEAN CORPUSCULAR HEMOGLOBIN 27.2 pg (27.0-33.0); MEAN CORPUSCULAR HGB CONC 32.2 g/dL (32.0-36.0); MEAN CORPUSCULAR VOLUME 84.4 fL (79-99); NEUTROPHILS % (AUTO) 92.6 % (40.0-77.0); NUCLEATED RED BLOOD CELLS 0.3 % (0.0-0.19); PLATELET COUNT (AUTO) 114 K/uL (130-400); RED BLOOD CELL COUNT(AUTO) 3.27 MIL/uL (4.50-6.20); RED CELL DISTRIBUTION WIDTH 16.5 % (11.0-15.5); WHITE BLOOD COUNT (AUTO) 17.7 K/uL (4.8-10.8)
[2020-04-19 03:43] LABS: ABG BASE EXCESS 2.1 mmol/L (-2.0-3.0); ABG HCO3 23.7 mmol/L (21.0-28.0); ABG PCO2 29 mmHg (35-48)
[2020-04-19 03:47] LABS: ALBUMIN 1.5 g/dL (3.5-5.0); BILIRUBIN,TOTAL 0.6 mg/dL (0.2-1.0); MAGNESIUM 3.5 mg/dL (1.80-2.40); POTASSIUM 3.4 mmol/L (3.5-5.1); TOTAL PROTEIN, SERUM 5.5 g/dL (6.0-8.3)
[2020-04-19] MEDS: METOPROLOL TARTRATE 1 MG/ML 5ML VIAL IV SCH ×4 (05:25→17:45)
[2020-04-19] MEDS: ACETYLCYSTEINE 20% 200MG/ML 4ML VIAL IH SCH ×3 (06:09→23:16)
[2020-04-19] MEDS: IPRATROPIUM 0.5 MG/2.5 ML INH IH SCH ×4 (06:09→23:16)
[2020-04-19] MEDS: INSULIN HUMULIN R 100 UNIT/ML 3ML SQ SCH ×4 (07:17→22:05)
[2020-04-19] MEDS: MEROPENEM 1 GM VIAL IVP SCH (08:00)
[2020-04-19] MEDS: 1/2 NORMAL SALINE + 20 MEQ KCL 1,000 ML IV SCH (10:53)
[2020-04-19] MEDS: AMIODARONE HCL 450 MG in DEXTROSE 5%-WATER 250 ML IV SCH (10:56)
--- NOTE | 2020-04-19 17:05 | NUR ---
ARTI MELCHOR. JAVA USER INTERFACE DEVELOPER COORDINATED WITH NURSE NOMAN. PATIENT INTUBATED AT THIS TIME. RE-EVALUATION TO BE COMPLETED 24 HOURS POST EXTUBATION. JAVA USER INTERFACE DEVELOPER WILL CONTINUE TO FOLLOW. Addendum: 04/19/[address] GIGI Amended: Links added.
[2020-04-19] MEDS: FAMOTIDINE/PF 20 MG/2 ML VIAL IV SCH (21:50)
[2020-04-19] MEDS: ATORVASTATIN CALCIUM 40 MG TABLET PO SCH (21:50)
[2020-04-20] VITALS (32 sets, daily range): BP systolic 115–160; BP diastolic 60–108
[2020-04-20] MEDS: METOPROLOL TARTRATE 1 MG/ML 5ML VIAL IV SCH ×2 (00:03→06:36)
[2020-04-20] MEDS: PHARMACY COMMUNICATION MISC SCH ×9 (00:03→14:15)
[2020-04-20] MEDS: LINEZOLID 600 MG/ISO-OSM 300 ML IV SCH ×2 (02:42→15:15)
[2020-04-20 04:18] LABS: ABG BASE EXCESS -0.8 mmol/L (-2.0-3.0); ABG OXYGEN SATURATION 99.1 % (95.0-99.0); ABG PCO2 25 mmHg (35-48)
[2020-04-20 05:34] LABS: BASOPHILS % (AUTO) 0.1 % (0.0-5.0); EOSINOPHILS % (AUTO) 0.7 % (0.0-8.0); HEMATOCRIT 28.4 % (42-54); LYMPHOCYTES % (AUTO) 4.7 % (21.0-51.0); MEAN CORPUSCULAR HEMOGLOBIN 27.2 pg (27.0-33.0); MEAN CORPUSCULAR HGB CONC 33.1 g/dL (32.0-36.0); MEAN CORPUSCULAR VOLUME 82.3 fL (79-99); MONOCYTES % (AUTO) 1.2 % (3.0-13.0); NEUTROPHILS % (AUTO) 92.8 % (40.0-77.0); NUCLEATED RED BLOOD CELLS 0.1 % (0.0-0.19); PLATELET COUNT (AUTO) 98 K/uL (130-400); RED BLOOD CELL COUNT(AUTO) 3.45 MIL/uL (4.50-6.20); RED CELL DISTRIBUTION WIDTH 16.9 % (11.0-15.5); WHITE BLOOD COUNT (AUTO) 15.1 K/uL (4.8-10.8)
[2020-04-20 06:07] LABS: ALBUMIN 1.2 g/dL (3.5-5.0); BILIRUBIN,TOTAL 0.8 mg/dL (0.2-1.0); CREATININE 3.7 mg/dL (0.5-1.5); MAGNESIUM 2.6 mg/dL (1.80-2.40); PHOSPHORUS 4.1 mg/dL (2.5-4.9); POTASSIUM 3.4 mmol/L (3.5-5.1); TOTAL PROTEIN, SERUM 5.5 g/dL (6.0-8.3); URIC ACID 9.5 mg/dL (2.6-7.2)
[2020-04-20] MEDS: ACETYLCYSTEINE 20% 200MG/ML 4ML VIAL IH SCH ×3 (06:22→18:31)
[2020-04-20] MEDS: IPRATROPIUM 0.5 MG/2.5 ML INH IH SCH ×3 (06:22→18:30)
[2020-04-20] MEDS: 1/2 NORMAL SALINE + 20 MEQ KCL 1,000 ML IV SCH (06:38)
[2020-04-20] MEDS: INSULIN HUMULIN R 100 UNIT/ML 3ML SQ SCH ×3 (06:45→20:53)
[2020-04-20] MEDS: MEROPENEM 1 GM VIAL IVP SCH (09:00)
--- NOTE | 2020-04-20 09:20 | NUR ---
ARTI MELCHOR - 2ND ATTEMPT FUEL CELL BINDER COORDINATED WITH NURSE PATEL AND RTNUBIA. PATIENT CONTINUES INTUBATED AND PER RT, EXTUBATION DAY IS UNCERTAIN. PATIENT CURRENTLY ON PEG FEEDINGS. FUEL CELL BINDER COORDINATED WITH NURSE PATEL AND WILL FOLLOW Pt FOR SKILLED SPEECH THERAPY EVALUATION 24 HOURS POST EXTUBATION. Addendum: 04/20/[address] NIKITA YU Amended: Links added.
[2020-04-20] MEDS: METOPROLOL TARTRATE 50 MG TAB PO SCH ×2 (15:30→20:58)
[2020-04-20] MEDS ORDERED: AMIODARONE HCL 200 MG TABLET PO ONE (15:36)
[2020-04-20 15:41] LABS: ABG BASE EXCESS -3.7 mmol/L (-2.0-3.0); ABG HCO3 18.7 mmol/L (21.0-28.0); ABG OXYGEN SATURATION 99.1 % (95.0-99.0); ABG PCO2 28 mmHg (35-48)
[2020-04-20] MEDS: FAMOTIDINE/PF 20 MG/2 ML VIAL IV SCH (20:57)
[2020-04-20] MEDS: AMIODARONE HCL 200 MG TABLET PO SCH (20:58)
[2020-04-20] MEDS: ATORVASTATIN CALCIUM 40 MG TABLET PO SCH (20:58)
[2020-04-20] MEDS: ACETAMINOPHEN 325 MG TAB PO PRN (22:34)
[2020-04-21] VITALS (7 sets, daily range): BP systolic 128–160; BP diastolic 74–96
[2020-04-21] MEDS: ACETYLCYSTEINE 20% 200MG/ML 4ML VIAL IH SCH ×3 (00:01→11:05)
[2020-04-21] MEDS: IPRATROPIUM 0.5 MG/2.5 ML INH IH SCH ×3 (00:01→11:05)
[2020-04-21] MEDS: 1/2 NORMAL SALINE + 20 MEQ KCL 1,000 ML IV SCH (01:32)
[2020-04-21] MEDS: LINEZOLID 600 MG/ISO-OSM 300 ML IV SCH ×2 (02:24→13:31)
[2020-04-21 04:48] LABS: CREATININE 3.4 mg/dL (0.5-1.5); POTASSIUM 3.9 mmol/L (3.5-5.1)
[2020-04-21] MEDS: INSULIN HUMULIN R 100 UNIT/ML 3ML SQ SCH ×3 (06:56→13:29)
[2020-04-21] MEDS: MEROPENEM 1 GM VIAL IVP SCH (08:42)
[2020-04-21] MEDS: METOPROLOL TARTRATE 50 MG TAB PO SCH (08:42)
[2020-04-21] MEDS: AMIODARONE HCL 200 MG TABLET PO SCH (08:42)
--- NOTE | 2020-04-21 09:14 | NUR ---
RD FOLLOW UP RD notification, Pt s/p PEG placement on 04/18. Pt resumes tube feedings on Suplena, No note of GI distress as per RN. Monitored labs: WBC 15.1, Na 147, Cl 113, BUN 86, Cr 3.4, GFR 19, BG 170, Ca 7.6, Mg 2.60, K 3.9. KCL, Lipitor, Pepcid, Merrem, Linezolid medications in place. Recommend to continue Tube feeding with Suplena order at this time. RD to continue to monitor.
--- NOTE | 2020-04-21 10:15 | NUR ---
DYSPHAGIA RE-EVALUATION COMPLETED. +S/S OF ASPIRATION. RECOMMEND NPO, PEG TUBE FEEDINGS. RECOMMENDATIONS: DYSPHAGIA THERAPY 1-5X WEEK FOR 4 WKS TO INCREASE ORAL MOTOR STRENGTH AND PHARYNGEAL SWALLOW: LTG#1: Pt WILL TOLERATE LEAST RESTRICTIVE DIET TO MEET NUTRITION/HYDRATION WITH NO S/S OF ASPIRATION. LTG#2: SKILLED EDUCATION Pt/FAMILY/STAFF STG#1: Pt WILL PARTICIPATE IN LARYNGEAL ELEVATION/EXCURSION EXERCISES WITH 80% ACCURACY. STG#2: Pt WILL PARTICIPATE IN TONGUE BASE RETRACTION EXERCISES WITH 80% ACCURACY. STG#3: Pt WILL PARTICIPATE IN ORAL MOTOR EXERCISES WITH 80% ACCURACY. STG#4: Pt WILL TOLERATE THERAPEUTIC TRIALS OF ICE CHIPS WITH NO S/S OF ASPIRATION. STG#5: MBSS IN 2-4 WEEKS S/P THERAPEUTIC INTERVENTION. STG#6: SKILLED EDUCATION Pt/FAMILY/STAFF. DIE SIZER EDUCATED DAUGHTER GISELA ON RISKS AND CONSEQUENCES OF ASPIRATION. PLAN OF CARE WITH EXPLAINED AND DISCUSSED IN DETAIL. DAUGHTER VERBALIZED UNDERSTANDING AND COMPLIANCE. ALL QUESTIONS ANSWERED AT THIS TIME. Addendum: 04/21/20 at [address] Amended: Links added.
--- NOTE | 2020-04-21 10:30 | NUR ---
COGNITIVE-LINGUISTIC EVALUATION. Pt PRESENTS WITH SEVERE RECEPTIVE AND EXPRESSIVE LANGUAGE DEFICITS AND SEVERE COGNITIVE DEFICITS. EVALUATION: Pt FOLLOWED 1-STEP COMMANDS WITH MAX VERBAL AND TACTILE CUES INCONSISTENTLY. Pt ORIENTED TO SELF ONLY AT THIS TIME. Pt WITH LIMITED VERBAL OUTPUT VIA REPETITION WITH INCONSISTENT RESPONSES. Pt REQUIRES HAND-OVER HAND TO COMPLETE TASKS. SKILLED SPEECH THERAPY IS RECOMMENDED TARGETING AFOREMENTIONED WEAKNESSES. DAUGHTER REPORTS Pt WAS INDEPENDENT PRIOR TO ADMISSION. RECOMMENDATIONS: 1. SKILLED SPEECH THERAPY 1-5X WEEK FOR 4 WEEKS TARGETING EXPRESSIVE/RECEPTIVE LANGUAGE AND COGNITION. LTG1: PT WILL INCREASE COGNITIVE-LINGUISTIC SKILLS TO COMMUNICATE WANTS AND NEEDS AND INTERACT IN ADL INDEPENDENTLY ABLE. STG1: PT WILL INCREASE VERBAL OUTPUT TO LABEL COMMON OBJECTS WITH 80% ACCURACY. STG4: PT WILL BE AAOX4 WITH MINIMAL VERBAL CUES. STG5: PT WILL ANSWER YES/NO QUESTIONS WITH 80% ACCURACY. STG6: Pt WILL FOLLOW SIMPLE 1-STEP COMMANDS WITH 80% ACCURACY. STG7: SKILLED EDUCATION Pt/FAMILY/STAFF. SPOKEN LANGUAGE EXPRESSION G-CODES: G9159: SHIVANI G9160: CL [id number]: SHIVANI Addendum: 04/21/20 at [address] Amended: Links added.
== END 2020-04-21 17:57 | DRG 329 ==
LOC: EDH 16:08 → EDHIP 17:59 → 3BH 23:18 → 2CH 04-08 11:00
PROVIDERS: ADMIT Internal Medicine; ATTEND Internal Medicine
PROC: 5A1955Z Respiratory Ventilation, Greater than 96 Consecutive Hours (ICD-10-PCS; principal; 2020-04-08)
PROC: 0DQ Gastrointestinal System, Repair (ICD-10-PCS; 2020-04-08)
PROC: 05HC33Z Insertion of Infusion Device into Left Basilic Vein, Percutaneous Approach (ICD-10-PCS; 2020-04-08)
PROC: 0DJ08ZZ Inspection of Upper Intestinal Tract, Via Natural or Artificial Opening Endoscopic (ICD-10-PCS; 2020-04-08)
PROC: 0BH17EZ Insertion of Endotracheal Airway into Trachea, Via Natural or Artificial Opening (ICD-10-PCS; 2020-04-08)
PROC: 5A1945Z Respiratory Ventilation, 24-96 Consecutive Hours (ICD-10-PCS; 2020-04-08)
PROC: 0BH17EZ Insertion of Endotracheal Airway into Trachea, Via Natural or Artificial Opening (ICD-10-PCS; 2020-04-08)
PROC: 0DH63UZ Insertion of Feeding Device into Stomach, Percutaneous Approach (ICD-10-PCS; 2020-04-08)
DX: K29.01 Acute gastritis with bleeding (principal); J69.0 Pneumonitis due to inhalation of food and vomit; A41.9 Sepsis, unspecified organism; J96.00 Acute respiratory failure, unspecified whether with hypoxia or hypercapnia; R65.21 Severe sepsis with septic shock; I13.0 Hypertensive heart and chronic kidney disease with heart failure and stage 1 through stage 4 chronic kidney disease, or unspecified chronic kidney disease; I48.20 Chronic atrial fibrillation, unspecified; N17.9 Acute kidney failure, unspecified; D62 Acute posthemorrhagic anemia; N18.4 Chronic kidney disease, stage 4 (severe); K92.1 Melena; Z79.01 Long term (current) use of anticoagulants; E11.22 Type 2 diabetes mellitus with diabetic chronic kidney disease; E78.5 Hyperlipidemia, unspecified; M10.9 Gout, unspecified; F19.90 Other psychoactive substance use, unspecified, uncomplicated; I50.9 Heart failure, unspecified; Z20.828 Contact with and (suspected) exposure to other viral communicable diseases
CPT/HCPCS: 31500; 36415; 36430; 36569; 36600; 43246; 44360; 44366; 70450; 71045; 71250; 76770; 78278; 80048; 80053; 81001; 82140; 82435; 82803; 82947; 82948; 83605; 83735; 84100; 84132; 84145; 84295; 84484; 84550; 85014; 85018; 85025; 85027; 85378; 85610; 85730; 86677; 86850; 86900; 86901; 86923; 87040; 87071; 87088; 87205; 87426; 92522; 92610; 92950; 93005; 93306; 93356; 93970; 94002; 94003; 94640; 94660; 94664; 94667; 94668; A4344; A9512; C1894; C9113; G0378; J0171; J0282; J0692; J1170; J1650; J1815; J1940; J2020; J2185; J2250; J2310; J2370; J2543; J2597; J2704; J3370; J3475; J3480; J3490; J7030; J7050; J7060; J7070; J7120; J7608; P9016; U0003

== ENCOUNTER 2020-06-07 22:49 | Inpatient (IN) | payer OTHER ==
[~2020-06-07] VITALS: Ht 165.1 cm; Wt 76.6 kg
[2020-06-07 23:58] LABS: EOSINOPHILS % (AUTO) 3.7 % (0.0-8.0); HEMATOCRIT 28.4 % (42-54); LYMPHOCYTES % (AUTO) 18.6 % (21.0-51.0); MEAN CORPUSCULAR HEMOGLOBIN 27.9 pg (27.0-33.0); MEAN CORPUSCULAR HGB CONC 30.3 g/dL (32.0-36.0); MEAN CORPUSCULAR VOLUME 92.2 fL (79-99); MONOCYTES % (AUTO) 5.9 % (3.0-13.0); NEUTROPHILS % (AUTO) 70.2 % (40.0-77.0); PLATELET COUNT (AUTO) 300 K/uL (130-400); RED BLOOD CELL COUNT(AUTO) 3.08 MIL/uL (4.50-6.20); RED CELL DISTRIBUTION WIDTH 19.9 % (11.0-15.5); WHITE BLOOD COUNT (AUTO) 11.8 K/uL (4.8-10.8)
[2020-06-08 00:08] LABS: POTASSIUM 5.1 mmol/L (3.5-5.1)
[2020-06-08 00:13] LABS: ALBUMIN 2.3 g/dL (3.5-5.0); BILIRUBIN,TOTAL 0.3 mg/dL (0.2-1.0); TOTAL PROTEIN, SERUM 7.2 g/dL (6.0-8.3)
[2020-06-08 00:26] LABS: APPEARANCE,URINE Clear (CLEAR); BILIRUBIN,URINE Negative (NEGATIVE); COLOR,URINE Yellow (YELLOW); GLUCOSE, URINE (UA) Negative (NEGATIVE); KETONES,URINE Negative (NEGATIVE); LEUKOCYTE ESTERASE ,URINE Negative (NEGATIVE); NITRATE,URINE Negative (NEGATIVE); OCCULT BLOOD,URINE Nonhemolyzed Trace (NEGATIVE); PROTEIN,URINE 300 mg/dL (NEGATIVE); UROBILINOGEN,URINE 0.2 mg/dL (0.2-1.0)
[2020-06-08 00:36] LABS: BACTERIA,URINE None Seen /HPF (None Seen); RBC,URINE 0-1 /HPF (0-1); SQUAMOUS EPITHELIAL CELL,UR Rare /HPF (0-2); WBC,URINE None Seen /HPF (0-1)
[2020-06-08] MEDS ORDERED: CEFTRIAXONE 1G VIAL ONE (01:03)
[2020-06-08] MEDS ORDERED: AZITHROMYCIN 500MG+NS 250ML 250 ML IV ONE (02:41)
[2020-06-08] MEDS ORDERED: LORAZEPAM 0.5 MG TABLET PO PRN (03:45)
[2020-06-08] MEDS ORDERED: 0.9%NACL 1000ML 1,000 ML IV SCH (03:45)
[2020-06-08] MEDS ORDERED: ONDANSETRON 4MG INJ IVP PRN (03:45)
[2020-06-08] MEDS ORDERED: TEMAZEPAM 15 MG CAPSULE PO PRN (03:45)
[2020-06-08] MEDS ORDERED: DEXTROSE 50%-WATER 50 ML DISP.SYRIN IV PRN (03:45)
[2020-06-08] MEDS ORDERED: GLUCAGON 1MG KIT 1 MG ML IM PRN (03:45)
[2020-06-08] MEDS ORDERED: ACETAMINOPHEN 325 MG TAB PO PRN (03:45)
[2020-06-08] MEDS: IPRATROPIUM/ALBUTEROL SULFATE 3 ML SOLUTION IH SCH ×3 (06:00→18:00)
[2020-06-08] MEDS: INSULIN R PO SS1 SQ SCH ×4 (07:30→21:00)
[2020-06-08 08:14] LABS: CREATININE 1.9 mg/dL (0.5-1.5); POTASSIUM 4.8 mmol/L (3.5-5.1)
[2020-06-08] MEDS ORDERED: KCL 20 MEQ ERTAB PO PRN (10:30)
[2020-06-08] MEDS ORDERED: POTASSIUM CHLORIDE 10% ELIXIR 20 MEQ/15 ML UDCUP PO PRN (10:30)
[2020-06-08] MEDS ORDERED: LIDOCAINE HCL-MPF 1% 2ML VIAL IV PRN (10:30)
[2020-06-08] MEDS ORDERED: MAGNESIUM 2GM PREMIX 50ML 50 ML IV PRN (10:30)
[2020-06-08] MEDS ORDERED: POTASSIUM CHLORIDE 20MEQ/100ML 100 ML IV PRN (10:30)
[2020-06-08] MEDS ORDERED: AZITHROMYCIN 250 MG TABLET PO SCH (12:30)
[2020-06-08] MEDS ORDERED: AZITHROMYCIN 250 MG TABLET PO ONE (12:39)
[2020-06-08] MEDS ORDERED: VANCOMYCIN PROTOCOL PER PHARMACY IV SCH (14:30)
[2020-06-08] MEDS ORDERED: CEFEPIME HCL 1 GM VIAL ONE ×2 (15:35→20:31)
[2020-06-08] MEDS ORDERED: FUROSEMIDE 40MG VIAL ONE ×2 (15:36→20:31)
[2020-06-08] MEDS ORDERED: LEVOFLOXACIN 500 MG/D5W 100 ML 100 ML ONE (15:42)
[2020-06-08] MEDS: FUROSEMIDE 40MG VIAL IV SCH (17:16)
[2020-06-08] MEDS: CEFEPIME HCL 2 GM VIAL IVP SCH (17:16)
[2020-06-08] MEDS: METOPROLOL SUCCINATE 50 MG TAB.SR.24H PO SCH (17:17)
[2020-06-08] MEDS: APIXABAN 5 MG TABLET PO SCH (17:17)
[2020-06-08] MEDS: VANCOMYCIN 1G/250ML KIT 250 ML IV SCH (19:00)
[2020-06-08] MEDS ORDERED: VANCOMYCIN 1G/250ML KIT 250 ML IV ONE (20:32)
[2020-06-09] MEDS ORDERED: CEFTRIAXONE 1G VIAL IVP SCH (01:00)
[2020-06-09] MEDS ORDERED: AZITHROMYCIN 500MG+NS 250ML 250 ML IV SCH (01:00)
[2020-06-09 04:30] LABS: HEMATOCRIT 26.4 % (42-54); MEAN CORPUSCULAR HEMOGLOBIN 27.6 pg (27.0-33.0); MEAN CORPUSCULAR HGB CONC 30.7 g/dL (32.0-36.0); MEAN CORPUSCULAR VOLUME 90.1 fL (79-99); RED BLOOD CELL COUNT(AUTO) 2.93 MIL/uL (4.50-6.20); RED CELL DISTRIBUTION WIDTH 19.9 % (11.0-15.5); WHITE BLOOD COUNT (AUTO) 10.3 K/uL (4.8-10.8)
[2020-06-09 04:41] LABS: CREATININE 1.9 mg/dL (0.5-1.5); POTASSIUM 4.9 mmol/L (3.5-5.1)
[2020-06-09] MEDS: FUROSEMIDE 40MG VIAL IV SCH ×2 (05:16→17:16)
[2020-06-09] MEDS: CEFEPIME HCL 2 GM VIAL IVP SCH ×2 (05:16→17:16)
[2020-06-09] MEDS: IPRATROPIUM/ALBUTEROL SULFATE 3 ML SOLUTION IH SCH ×4 (06:00→18:00)
[2020-06-09] MEDS: INSULIN R PO SS1 SQ SCH ×4 (07:30→21:00)
[2020-06-09] MEDS: METOPROLOL SUCCINATE 50 MG TAB.SR.24H PO SCH (09:00)
[2020-06-09] MEDS: APIXABAN 5 MG TABLET PO SCH (09:00)
[2020-06-09] MEDS ORDERED: METOPROLOL TARTRATE 50 MG TAB ONE (09:09)
[2020-06-09] MEDS ORDERED: FUROSEMIDE 40MG VIAL ONE (16:51)
[2020-06-09] MEDS ORDERED: CEFEPIME HCL 1 GM VIAL ONE (16:51)
[2020-06-09] MEDS: VANCOMYCIN 1G/250ML KIT 250 ML IV SCH (19:00)
[2020-06-10] MEDS ORDERED: CEFEPIME HCL 1 GM VIAL ONE (04:48)
[2020-06-10] MEDS ORDERED: FUROSEMIDE 40MG VIAL ONE ×2 (04:49→17:15)
[2020-06-10] MEDS: CEFEPIME HCL 2 GM VIAL IVP SCH ×2 (05:16→17:16)
[2020-06-10] MEDS: FUROSEMIDE 40MG VIAL IV SCH ×2 (05:16→17:16)
[2020-06-10 05:41] LABS: BASOPHILS % (AUTO) 0.9 % (0.0-5.0); HEMATOCRIT 26.7 % (42-54); LYMPHOCYTES % (AUTO) 11.6 % (21.0-51.0); MEAN CORPUSCULAR HEMOGLOBIN 28.1 pg (27.0-33.0); MEAN CORPUSCULAR HGB CONC 31.8 g/dL (32.0-36.0); MEAN CORPUSCULAR VOLUME 88.4 fL (79-99); MONOCYTES % (AUTO) 5.5 % (3.0-13.0); NEUTROPHILS % (AUTO) 78.6 % (40.0-77.0); PLATELET COUNT (AUTO) 298 K/uL (130-400); RED BLOOD CELL COUNT(AUTO) 3.02 MIL/uL (4.50-6.20); RED CELL DISTRIBUTION WIDTH 19.8 % (11.0-15.5); WHITE BLOOD COUNT (AUTO) 10.7 K/uL (4.8-10.8)
[2020-06-10] MEDS: IPRATROPIUM/ALBUTEROL SULFATE 3 ML SOLUTION IH SCH ×4 (06:00→18:00)
[2020-06-10 06:02] LABS: B-TYPE NATRIURETIC PEPTIDE 1110 pg/mL (0-100)
[2020-06-10 06:06] LABS: ALBUMIN 2.2 g/dL (3.5-5.0); BILIRUBIN,TOTAL 0.4 mg/dL (0.2-1.0); POTASSIUM 4.4 mmol/L (3.5-5.1); TOTAL PROTEIN, SERUM 6.3 g/dL (6.0-8.3)
[2020-06-10] MEDS: INSULIN R PO SS1 SQ SCH ×4 (07:30→21:00)
[2020-06-10] MEDS ORDERED: APIXABAN 2.5 MG TABLET PO ONE (07:51)
[2020-06-10] MEDS ORDERED: METOPROLOL SUCCINATE 50 MG TAB.SR.24H PO ONE (07:52)
[2020-06-10] MEDS: APIXABAN 5 MG TABLET PO SCH (09:00)
[2020-06-10] MEDS: METOPROLOL SUCCINATE 50 MG TAB.SR.24H PO SCH (09:00)
[2020-06-10] MEDS: PANTOPRAZOLE 40 MG TAB DR PO SCH (11:30)
[2020-06-10] MEDS ORDERED: LEVOFLOXACIN 500 MG/D5W 100 ML 100 ML IV SCH (14:30)
[2020-06-10] MEDS ORDERED: CEFEPIME HCL 2 GM VIAL ONE (17:15)
[2020-06-10] MEDS ORDERED: VANCOMYCIN 1G/250ML KIT 250 ML IV ONE (17:52)
[2020-06-10] MEDS: VANCOMYCIN 1G/250ML KIT 250 ML IV SCH (19:00)
[2020-06-10] MEDS ORDERED: LEVOFLOXACIN 500 MG/D5W 100 ML 100 ML ONE (20:28)
[2020-06-10 22:25] VITALS: BP 171/88
[2020-06-10] MEDS ORDERED: DILT-36 PO (23:03)
[2020-06-10] MEDS ORDERED: FURO20TA4 PO (23:03)
[2020-06-10] MEDS ORDERED: NYSTPW TP (23:03)
[2020-06-10] MEDS ORDERED: RISP1TAB68 PO (23:03)
[2020-06-10] MEDS ORDERED: SUCR1TAB2 PO (23:03)
[2020-06-10] MEDS ORDERED: INSU100V12 SQ (23:12)
[2020-06-11 04:10] VITALS: BP 167/87
[2020-06-11] MEDS: CEFEPIME HCL 2 GM VIAL IVP SCH ×2 (04:22→17:16)
[2020-06-11] MEDS: FUROSEMIDE 40MG VIAL IV SCH ×2 (04:23→17:16)
[2020-06-11 05:40] VITALS: BP 164/85
[2020-06-11 05:41] LABS: HEMATOCRIT 28.2 % (42-54); MEAN CORPUSCULAR HGB CONC 31.6 g/dL (32.0-36.0); MEAN CORPUSCULAR VOLUME 88.7 fL (79-99); RED BLOOD CELL COUNT(AUTO) 3.18 MIL/uL (4.50-6.20); RED CELL DISTRIBUTION WIDTH 19.7 % (11.0-15.5)
[2020-06-11 05:55] LABS: CREATININE 2.1 mg/dL (0.5-1.5); POTASSIUM 4.4 mmol/L (3.5-5.1)
[2020-06-11] MEDS: INSULIN R PO SS1 SQ SCH ×3 (05:59→16:30)
[2020-06-11] MEDS: PANTOPRAZOLE 40 MG TAB DR PO SCH (06:10)
[2020-06-11 08:17] VITALS: BP 175/85
[2020-06-11] MEDS: APIXABAN 5 MG TABLET PO SCH (09:00)
[2020-06-11] MEDS: METOPROLOL SUCCINATE 50 MG TAB.SR.24H PO SCH (09:14)
[2020-06-11 11:56] VITALS: BP 143/74
[2020-06-11] MEDS ORDERED: AMOX-426 PO (13:55)
[2020-06-11 16:14] VITALS: BP 154/84
== END 2020-06-11 19:15 | disposition home health service (06) | DRG 177 ==
LOC: EDH 22:49 → OBSVTOIN 06-08 01:50 → EDHIP 06-08 01:50 → 3AH 06-10 21:54
PROVIDERS: ADMIT Internal Medicine Critical Care Medicine; ATTEND Internal Medicine Critical Care Medicine
DX: J69.0 Pneumonitis due to inhalation of food and vomit (principal); I50.43 Acute on chronic combined systolic (congestive) and diastolic (congestive) heart failure; R78.81 Bacteremia; I11.0 Hypertensive heart disease with heart failure; Y95 Nosocomial condition; E78.5 Hyperlipidemia, unspecified; I48.91 Unspecified atrial fibrillation; E11.9 Type 2 diabetes mellitus without complications; R53.81 Other malaise; Z20.822 Contact with and (suspected) exposure to COVID-19; Z79.01 Long term (current) use of anticoagulants; Z93.1 Gastrostomy status; Z86.73 Personal history of transient ischemic attack (TIA), and cerebral infarction without residual deficits; Z79.4 Long term (current) use of insulin; Z79.899 Other long term (current) drug therapy
CPT/HCPCS: 36415; 71045; 71250; 74230; 80048; 80053; 80202; 81001; 82948; 83880; 84145; 84484; 85025; 85027; 87040; 87077; 87186; 87426; 87804; 92610; 92611; 93005; 97039; G0378; J0456; J0692; J0696; J1815; J1940; J1956; J3370; U0003

== ENCOUNTER 2020-09-11 05:57 | Day surgery (SDC) | payer OTHER ==
[2020-09-11] VITALS (8 sets, daily range): BP systolic 98–150; BP diastolic 51–69
[~2020-09-11 05:57] MED LIST changes: +AMOX-426 PO; -APIX5TAB PO; -ATOR40TA69 PO; -CARAL PO; +DILT-36 PO; -DOXA2TAB2 PO; +FURO20TA4 PO; -FURO40TA5 PO; -HYDR-3420 PO; +INSU100V12 SQ; -NIFE-39 PO; +NYSTPW TP; -PANT40TA PO; +SUCR1TAB2 PO
[2020-09-11] MEDS ORDERED: SODIUM CHLORIDE 0.9% 1000ML 1,000 ML IV ONE (06:23)
[2020-09-11] MEDS ORDERED: OMEP-459 PO (07:34)
[2020-09-11] MEDS ORDERED: CYAN1TAB44 PO (07:34)
[2020-09-11] MEDS ORDERED: FOLI0.8T3 PO (07:34)
[2020-09-11] MEDS ORDERED: SERT25TA PO (07:34)
[2020-09-11] MEDS ORDERED: METO25 PO (07:34)
[2020-09-11] MEDS ORDERED: AEC81 PO (07:34)
[2020-09-11] MEDS ORDERED: ATOR40TA69 PO (07:34)
[2020-09-11] MEDS ORDERED: FERR-82 PO (07:34)
[2020-09-11] MEDS ORDERED: AMLO-257 PO (07:34)
[2020-09-11] MEDS ORDERED: PROPOFOL 10 MG/ML 20ML VIAL IV ONE (08:18)
== END 2020-09-11 09:20 | disposition home or self-care (01) ==
LOC: ENDO 05:57 → DAH 05:57 → ENDO 09:20
PROVIDERS: ATTEND Internal Medicine Gastroenterology
DX: D50.9 Iron deficiency anemia, unspecified (principal); Z20.822 Contact with and (suspected) exposure to COVID-19; K92.2 Gastrointestinal hemorrhage, unspecified; K31.89 Other diseases of stomach and duodenum; K63.3 Ulcer of intestine; R13.12 Dysphagia, oropharyngeal phase; I11.0 Hypertensive heart disease with heart failure; I50.20 Unspecified systolic (congestive) heart failure; E78.5 Hyperlipidemia, unspecified; E11.9 Type 2 diabetes mellitus without complications; M19.90 Unspecified osteoarthritis, unspecified site; Z86.73 Personal history of transient ischemic attack (TIA), and cerebral infarction without residual deficits; Z90.49 Acquired absence of other specified parts of digestive tract; Z98.890 Other specified postprocedural states; Z79.82 Long term (current) use of aspirin; Z79.899 Other long term (current) drug therapy
CPT/HCPCS: 44360; 82948; J2704; J7030; U0003

== ENCOUNTER → 2023-05-12 | Outpatient (CLI) | payer OTHER ==
[~2023-05-12] MED LIST changes: +AEC81 PO; +AMLO-257 PO; -AMOX-426 PO; +ATOR40TA69 PO; +CYAN1TAB44 PO; -DILT-36 PO; +FERR-82 PO; +FOLI0.8T3 PO; -FURO20TA4 PO; -METO-391 PO; +METO25 PO; -NYSTPW TP; +OMEP-459 PO; +SERT25TA PO; -SUCR1TAB2 PO
== END | disposition home or self-care (01) ==
LOC: SHCH 14:37
PROVIDERS: ATTEND Internal Medicine Cardiovascular Disease
DX: I08.8 Other rheumatic multiple valve diseases (principal); I11.9 Hypertensive heart disease without heart failure; I42.9 Cardiomyopathy, unspecified; E11.9 Type 2 diabetes mellitus without complications
CPT/HCPCS: 93306

== ENCOUNTER → 2024-03-09 | Outpatient (CLI) | payer OTHER | END | disposition home or self-care (01) | LOC: SHCH 07:43 | PROVIDERS: ATTEND Internal Medicine Cardiovascular Disease | DX: I42.9 Cardiomyopathy, unspecified (principal) | CPT/HCPCS: 93306 ==

== ENCOUNTER → 2024-11-28 | Outpatient (CLI) | payer OTHER ==
--- NOTE | 2024-11-29 15:00 | HMCIMG ---
MODIFIED BARIUM SWALLOW W CINE REASON: Feeding difficulties, unspecified FINDINGS: Fluoroscopic assistance was provided to the speech pathologist while performing examination. For findings and dietary recommendations, refer to speech pathologist's report. FLUORO TIME: 5.9 minutes IMPRESSION: Modified barium swallow as described.
== END | disposition home or self-care (01) ==
LOC: RAH 13:28
PROVIDERS: ATTEND Internal Medicine Gastroenterology
DX: R13.10 Dysphagia, unspecified (principal); R63.30 Feeding difficulties, unspecified
CPT/HCPCS: 74230; 92611

== ENCOUNTER → 2025-03-15 | Outpatient (CLI) | payer OTHER ==
[~2025-03-15] MED LIST changes: +LIDOCAINE 1%-EPI 1:100,000 20 ML VIAL ONE
--- NOTE | 2025-03-16 18:33 | HMCIMG ---
NAME OF THE EXAM: CT ABDOMEN AND PELVIS WITHOUT INTRAVENOUS CONTRAST CLINICAL INFORMATION: Unspecified lower abdominal pain; history of diverticular disease. Evaluate for acute abdominopelvic pathology. Positive oral contrast administered. TECHNIQUE: Helical computed tomography of the abdomen and pelvis with axial images and coronal/sagittal reformations. RADIATION DOSE: CTDIvol 5.9 mGy; DLP 335.8 mGy???cm. CONTRAST: No intravenous contrast administered; positive oral contrast administered (specifics not provided). COMPARISON: None provided. FINDINGS: LUNG BASES: Small bilateral loculated pleural effusions, right greater than left. Bibasilar consolidations which may be due to atelectasis or infiltrate. Cardiomegaly with coronary artery calcifications. HEART AND PERICARDIUM (LIMITED LOWER CHEST): Cardiac silhouette appears enlarged on limited views and there are severe coronary artery calcifications. LIVER: Contour irregularity compatible with cirrhotic morphology with otherwise normal attenuation; no focal lesion identified on noncontrast images; no intrahepatic or extrahepatic biliary ductal dilatation; del hepatis is unremarkable; portal vein, hepatic veins, and inferior vena cava are normal in caliber; assessment of enhancement is limited in the absence of intravenous contrast. GALLBLADDER AND BILIARY TREE: Gallbladder wall thickness and contour are normal; no intraluminal calculus or mass; pericholecystic fat is unremarkable; cystic duct appears normal. PANCREAS: Normal size and contour; pancreatic duct is not dilated; no peripancreatic fat stranding or fluid collection; evaluation of enhancement is limited without intravenous contrast. SPLEEN: Normal size and attenuation without focal lesion. ADRENALS: Normal morphology and attenuation bilaterally. KIDNEYS AND URETERS: Bilateral renal atrophy. No renal mass, calculus, or hydronephrosis. STOMACH AND DUODENUM: Stomach is distended and unremarkable; gastroesophageal junction, pylorus, and duodenum appear normal. SMALL BOWEL: Jejunal and ileal loops are normally distributed with normal wall thickness and mucosal pattern; mesenteric edema (anasarca) is present. COLON AND APPENDIX: Sigmoid colon diverticulosis is present without surrounding inflammatory change; rectum and colon contain fecal material; appendix is not inflamed and no secondary signs of appendicitis are present. PERITONEUM AND MESENTERY: Moderate ascites is present and there is no free intraperitoneal air. LYMPH NODES: No pathologically enlarged lymph nodes are identified. RETROPERITONEUM AND VASCULATURE: Aorta and inferior vena cava are normal in course and caliber; moderate atherosclerotic calcifications are present. PELVIC ORGANS: Urinary bladder demonstrates normal wall thickness and contour; prostate appears normal in size. ABDOMINAL WALL/SOFT TISSUES: Extra-abdominal and paraspinal soft tissues are unremarkable. OSSEOUS STRUCTURES: Multilevel degenerative changes are present with mild chronic compression deformity of the L4 vertebral body; bones appear osteopenic. IMPRESSION: * Moderate ascites and mesenteric edema; in the setting of cirrhotic liver morphology these findings raise concern for portal hypertension or fluid overload???correlate with liver function tests and consider hepatology referral and ultrasound with Doppler/ascites workup as clinically indicated. * Sigmoid colon diverticulosis without evidence of acute diverticulitis. * Bilateral renal atrophy. No urinary calculi. No hydronephrosis. * Small bilateral loculated pleural effusions, right greater than left. Bibasilar consolidations which may be due to atelectasis or infiltrate. Cardiomegaly with coronary artery calcifications. * Aortic atherosclerosis; continue risk-factor modification per guidelines. * Mild chronic compression deformity of L4 and osteopenic appearance of the bones; consider bone mineral density assessment if not recently performed. /[place]
== END | disposition home or self-care (01) ==
LOC: RAH 09:55
PROVIDERS: ATTEND Internal Medicine Gastroenterology
DX: K57.30 Diverticulosis of large intestine without perforation or abscess without bleeding (principal); N26.1 Atrophy of kidney (terminal); K76.0 Fatty (change of) liver, not elsewhere classified; K31.89 Other diseases of stomach and duodenum; J90 Pleural effusion, not elsewhere classified; M43.8X6 Other specified deforming dorsopathies, lumbar region; M47.816 Spondylosis without myelopathy or radiculopathy, lumbar region; M85.88 Other specified disorders of bone density and structure, other site; M47.817 Spondylosis without myelopathy or radiculopathy, lumbosacral region; I70.0 Atherosclerosis of aorta; I25.10 Atherosclerotic heart disease of native coronary artery without angina pectoris; I51.7 Cardiomegaly; R60.0 Localized edema; R10.30 Lower abdominal pain, unspecified
CPT/HCPCS: 74176; J3490; J0665